=== PATIENT | female | born 1990 | race African-American/Black ===

== ENCOUNTER 2019-01-27 08:06 | Observation (INO) | payer OTHER ==
--- OUTSIDE RECORDS SUMMARY | 2019-01-27 08:08 | XMS REPORT ---
:1990 [facility] Organization [facility] Address [address] [place] [address] Dr. Jacobo [address] [place] [id number] Care Team Providers Name Role Phone Unavailable Unavailable Unavailable Problems This patient has no known problems. Allergies, Adverse Reactions, Alerts This patient has no known allergies or adverse reactions. Medications This patient has no known medications.
[2019-01-27 09:26] LABS: Absolute Lymphocytes (CBC) 2.4 K/uL (0.7-4.9); Absolute Monocytes 0.7 K/uL (0.1-1.3); Absolute Neutrophil 2.9 K/uL (1.8-8.0); Basophils % 0.4 % (0-1.3); Eosinophils % 1.3 % (0-4.4); Hematocrit 40.6 % (36.0-45.0); Lymphocytes % 38.8 % (15.3-44.8); MPV 10.2 fL (7.6-11.3); Monocytes % 11.6 % (3.3-12.3); RBC Red Blood Cell Count 4.38 M/uL (3.86-4.86)
[2019-01-27] MEDS ORDERED: NA CHLORIDE 0.9% 1,000 ML ONE (09:34)
[2019-01-27 09:51] LABS: BUN Blood Urea Nitrogen 13 mg/dL (7-18); Bicarbonate 28 mmol/L (21-32); Glucose Level 88 mg/dL (74-106); Potassium 4.3 mmol/L (3.5-5.1); Sodium Level 146 mmol/L (136-145)
--- NOTE | 2019-01-27 11:25 | RAD REPORT ---
EXAM DESCRIPTION: RAD - Chest Single View - 01/27/2019 10:53 am CLINICAL HISTORY: Cough COMPARISON: January 2013 TECHNIQUE: AP portable chest image was obtained 1050 hours . FINDINGS: Lungs are clear. Heart and vasculature are normal. No measurable pleural effusion and no p neumothorax. No acute bony abnormality seen. No acute aortic findings suspected. IMPRESSION: No acute cardiopulmonary process.
--- NOTE | 2019-01-27 16:12 | EDPHYS ---
Physician Documentation [facility] Name: Ladi Gates Age: 28 yrs Sex: Female : 1990 Arrival Date: 01/27/2019 Time: 08:10 Bed 19 Private MD: Esme White H ED Physician Alexy Vela HPI: 01/27 08:20 This 28 yrs old Black Female presents to ER via Wheelchair with complaints of Fever, cp Decreased Appetite. 08:20 The patient reports fever, not measured (subjective). cp 08:20 Onset: The symptoms/episode began/occurred yesterday. Associated signs and symptoms: cp Pertinent positives: cough, decreased appetite, Pertinent negatives: diarrhea, skin rash, vomiting. 08:20 Severity of symptoms: in the emergency department the symptoms are unchanged despite cp home interventions. Patient non-verbal due to cerebral palsy. Mother reports subjective weight loss, decreased appetite and cough for 2 weeks. Historical: - Allergies: 08:34 PENICILLINS; em 08:34 Azithromycin; em - Home Meds: 08:34 Trazodone Oral [Active]; Atenolol Oral [Active]; Risperdal 2 mg Oral tab 1 tab once em daily [Active]; phenobarbital 30 mg Oral tab [Active]; clorazepate dipotassium 3.75 mg oral tab [Active]; lisinopril 20 mg Oral tab [Active]; levetiracetam 100 mg/mL oral soln 7.5 mL [Active]; valproic acid 250 mg oral cap [Active]; - PMHx: 08:34 Cerebral Palsy; em - PSHx: 08:34 None; em - Immunization history:: Adult Immunizations up to date. - Social history:: Smoking status: Patient/guardian denies using tobacco. - Ebola Screening: : Patient negative for fever greater than or equal to 101.5 degrees Fahrenheit, and additional compatible Ebola Virus Disease symptoms Patient denies exposure to infectious person Patient denies travel to an Ebola-affected area in the 21 days before illness onset No symptoms or risks identified at this time. ROS: 08:30 Constitutional: Positive for poor PO intake, Negative for fever. cp 08:30 Eyes: Negative for injury, pain, redness, and discharge. cp 08:30 ENT: Negative for drainage from ear(s), ear pain, sore throat, difficulty swallowing, difficulty handling secretions. 08:30 Respiratory: Positive for cough, Negative for wheezing. 08:30 Abdomen/GI: Negative for vomiting, diarrhea, constipation. 08:30 Skin: Negative for rash. 08:30 All other systems are negative. Exam: 08:35 Constitutional: The patient appears in no acute distress, alert, awake, cp non-diaphoretic, non-toxic, well developed, frail. 08:35 Head/Face: Normocephalic, atraumatic. cp 08:35 Eyes: Periorbital structures: appear normal, Pupils: equal, round, and reactive to light and accomodation, Conjunctiva: normal, no exudate, no injection, Sclera: no appreciated abnormality, Lids and lashes: appear normal, bilaterally. 08:35 ENT: External ear(s): are unremarkable, Ear canal(s): are normal, clear, TM's: bulging, is not appreciated, bilaterally, dullness, bilaterally, erythema, is not appreciated, bilaterally, Nose: is normal, Mouth: Lips: dry, Oral mucosa: dry, Posterior pharynx: is normal, airway is patent, no erythema, no exudate. 08:35 Neck: ROM/movement: is normal, is supple, no meningismus, no nuchal rigidity. 08:35 Chest/axilla: Inspection: normal, Palpation: is normal, no crepitus, no tenderness. 08:35 Cardiovascular: Rate: normal, Rhythm: regular. 08:35 Respiratory: the patient does not display signs of respiratory distress, Respirations: normal, no use of accessory muscles, no retractions, no splinting, no tachypnea, labored breathing, is not present, Breath sounds: decreased breath sounds, are not appreciated, stridor, is not appreciated, wheezing: is not appreciated. 08:35 Abdomen/GI: Inspection: abdomen appears normal, Bowel sounds: active, all quadrants, Palpation: soft, in all quadrants, mild abdominal tenderness, in the right lower quadrant and left lower quadrant. 08:35 Skin: cellulitis, is not appreciated, no rash present. Vital Signs: 08:34 BP 117 / 78; Pulse 88; Resp 16; Temp 97.5(A); Pulse Ox 100% on R/A; Weight 31.3 kg (R); em 10:00 BP 118 / 81; Pulse 85; Resp 18; Pulse Ox 100% on R/A; em 11:00 BP 108 / 86; Pulse 77; Resp 18; Pulse Ox 99% on R/A; em 12:06 BP 118 / 82; Pulse 81; Resp 18; Pulse Ox 99% on R/A; em 14:51 BP 130 / 86; Pulse 85; Resp 16; Pulse Ox 100% on R/A; ms 19:47 BP 138 / 95; Pulse 83; Resp 16; Pulse Ox 99% ; ea 20:45 BP 130 / 90; Pulse 80; Resp 18; Pulse Ox 99% ; ea MDM: 08:18 Patient medically screened. 15:30 Data reviewed: vital signs, nurses notes, lab test result(s), radiologic studies, plain cp films. 15:30 Test interpretation: by ED physician or midlevel provider: plain radiologic studies. cp Response to treatment: the patient's symptoms have mildly improved after treatment, No urine output observed after 3 fluid boluses at this point and multiple urinary cath attempts to obtain urine. Will admit for continued IV fluids and monitoring. 15:34 Physician consultation: Chris NOBLE was called at 15:30, was contacted at 15:30, cp regarding admission, to the medical/surgical unit. patient's condition, and will see patient in ED, shortly. 01/27 08:26 Order name: Urine Microscopic Only cp 01/27 08:26 Order name: CBC with Diff; Complete Time: 10:23 cp 01/27 11:20 Interpretation: Normal except: MCV 92.6. cp 01/27 08:26 Order name: Strep; Complete Time: 10:23 cp 01/27 08:26 Order name: Influenza Screen (a \T\ B); Complete Time: 10:23 cp 01/27 11:20 Interpretation: Reviewed. cp 01/27 08:26 Order name: BMP; Complete Time: 10:23 cp 01/27 11:19 Interpretation: Normal except: NA 146; CL 109. cp 01/27 09:19 Order name: Throat Culture EDMS 01/27 17:23 Order name: Basic Metabolic Panel EDMS 01/27 17:23 Order name: Basic Metabolic Panel EDMS 01/27 17:23 Order name: CBC with Automated Diff EDMS 01/27 17:23 Order name: CBC with Automated Diff EDMS 01/27 17:30 Order name: Creatine Phosphokinase EDFL 01/27 18:19 Order name: Blood Culture Adult (2) cp 01/27 18:19 Order name: Procalcitonin 01/27 19:01 Order name: Procalcitonin [facility] 01/27 10:23 Order name: XRAY Chest (1 view); Complete Time: 11:29 01/27 11:29 Interpretation: Report review. 01/27 16:13 Order name: CT Abd/Pelvis - W/Contrast; Complete Time: 18:11 01/27 17:23 Order name: Regular EDFL 01/27 20:15 Order name: Urine Dipstick--Ancillary (enter results) mt 01/27 20:15 Order name: Urine --Ancillary (enter results) tn Administered Medications: 10:06 Drug: NS 0.9% (20 ml/kg) 20 ml/kg Route: IV; Rate: 1 bolus; Site: left antecubital; em 13:00 Follow up: IV Status: Completed infusion; IV Intake: 600ml em 13:42 Drug: NS 0.9% (20 ml/kg) 20 ml/kg Route: IV; Rate: 1 bolus; Site: right forearm; em 14:24 Follow up: IV Status: Completed infusion; IV Intake: 600ml em 14:30 Drug: NS 0.9% (20 ml/kg) 20 ml/kg Route: IV; Rate: 1 bolus; Site: right forearm; em 15:30 Follow up: IV Status: Completed infusion; IV Intake: 600ml em 16:12 Not Given (Physician Discretion): NS 0.9% 500 ml IV at bolus once cp 19:05 Drug: Rocephin (cefTRIAXone) 25 mg/kg Route: IVPB; Site: right antecubital; ea 20:00 Follow up: Response: No adverse reaction; IV Status: Completed infusion ea 20:56 Drug: metroNIDAZOLE 7.5 mg/kg {Note: right upper midline.} Volume: 50 ml; Route: IVPB; ea Infused Over: 30 mins; Site: Other; 21:00 Follow up: Response: No adverse reaction; IV Status: Infusion continued upon admission ea Disposition: 01/27/19 16:11 Hospitalization ordered by Melvin Rodriguez for Observation. Preliminary diagnosis are Dehydration, colitis. - Bed requested for Telemetry/MedSurg (observation). - Status is Observation. ea - Condition is Stable. - Problem is new. - Symptoms are unchanged. UTI on Admission? No Addendum: 01/30/2019 07:12 Co-signature as Attending Physician, Alexy Vela MD I agree with the assessment and c villatoro plan of care. Signatures: Dispatcher [employer] Alexy Cai MD MD cha Munoz, Dima, BIOLOGY MANAGER BIOLOGY MANAGER em Alexy Medeiros, PA PA cp Earlene Valadez, RN RN Kelly Khanna Corrections: (The following items were deleted from the chart) 01/27 10:24 08:26 King ordered. cp cp 18:30 16:11 [facility]. Preliminary eb diagnosis is Dehydration. Bed requested for Telemetry/MedSurg (observation). Status is Observation. Condition is Stable. Problem is new. Symptoms are unchanged. UTI on Admission? No. cp 18:39 18:30 01/27/2019 16:11 Hospitalization Ordered by Melvin Jennifer for Observation. cp Preliminary diagnosis is Dehydration. Bed requested for Telemetry/MedSurg (observation). Status is Observation. Condition is Stable. Problem is new. Symptoms are unchanged. UTI on Admission? No. eb 21:12 18:39 01/27/2019 16:11 Hospitalization Ordered by Redmond Jennifer for Observation. ea Preliminary diagnosis is Dehydration; colitis. Bed requested for Telemetry/MedSurg (observation). Status is Observation. Condition is Stable. Problem is new. Symptoms are unchanged. UTI on Admission? No. cp
--- NOTE | 2019-01-27 16:12 | ER ---
Nurse's Notes [facility] Name: Ladi Gates Age: 28 yrs Sex: Female : 1990 Arrival Date: 01/27/2019 Time: 08:10 Bed 19 Private MD: Esme White H Diagnosis: Dehydration;colitis Presentation: 01/27 08:26 Presenting complaint: Mother states: has not been eating or drinking, has had a cough em for several weeks and has been feeling warm, she has been losing weight, pt unable to communicate, pt awake and alert, Hx of cerebral palsy. Transition of care: patient was not received from another setting of care. Onset of symptoms was January 2019. Risk Assessment: Do you want to hurt yourself or someone else? Patient reports no desire to harm self or others. Initial Sepsis Screen: Does the patient meet any 2 criteria? No. Patient's initial sepsis screen is negative. Does the patient have a suspected source of infection? Yes: Productive cough/pneumonia. Care prior to arrival: None. 08:26 Method Of Arrival: Wheelchair em 08:44 Acuity: ELINA 3 sv Triage Assessment: 08:34 General: Appears in no apparent distress. comfortable, slender, Behavior is calm. Pain: em Unable to use pain scale. FLACC scale score is 0 out of 10. Historical: - Allergies: 08:34 PENICILLINS; em 08:34 Azithromycin; em - Home Meds: 08:34 Trazodone Oral [Active]; Atenolol Oral [Active]; Risperdal 2 mg Oral tab 1 tab once em daily [Active]; phenobarbital 30 mg Oral tab [Active]; clorazepate dipotassium 3.75 mg oral tab [Active]; lisinopril 20 mg Oral tab [Active]; levetiracetam 100 mg/mL oral soln 7.5 mL [Active]; valproic acid 250 mg oral cap [Active]; - PMHx: 08:34 Cerebral Palsy; em - PSHx: 08:34 None; em - Immunization history:: Adult Immunizations up to date. - Social history:: Smoking status: Patient/guardian denies using tobacco. - Ebola Screening: : Patient negative for fever greater than or equal to 101.5 degrees Fahrenheit, and additional compatible Ebola Virus Disease symptoms Patient denies exposure to infectious person Patient denies travel to an Ebola-affected area in the 21 days before illness onset No symptoms or risks identified at this time. Screenin:34 Abuse screen: Denies threats or abuse. Nutritional screening: No deficits noted. em Tuberculosis screening: No symptoms or risk factors identified. Fall Risk No fall in past 12 months (0 pts). Ambulatory Aid- None/Bed Rest/Nurse Assist (0 pts). Gait- Impaired (20 pts.). Mental Status- Overestimates/Forgets Limitations (15 pts.). Total Lino Fall Scale indicates Low Risk Score (25-44 pts). Side Rails Up X 2 Family Present and informed to notify staff if they need to leave bedside. Assessment: 08:34 General: Appears in no apparent distress. comfortable, slender, Behavior is calm. Pain: em Unable to use pain scale. FLACC scale score is 0 out of 10. Neuro: Level of Consciousness is awake, alert. Cardiovascular: Capillary refill < 3 seconds Patient's skin is warm and dry. Respiratory: Airway is patent Breath sounds are clear bilaterally. GI: Abdomen is flat. Derm: Skin is intact, is healthy with good turgor, Skin is pink, warm \T\ dry. Musculoskeletal: Swelling absent. 08:34 Neuro: Level of Consciousness is awake, alert, Non-verbal at this time, unable to aa5 follow commands. . Cardiovascular: Heart tones S1 S2 present Rhythm is regular. GI: Bowel sounds present X 4 quads. Abd is soft X 4 quads. : brief noted. Musculoskeletal: pt is bed bound, with ria arm contractions noted. 08:34 Reassessment: I agree with assessment completed by Dima Ovalles LVN. Pt's caregiver at aa5 bedside. . 10:00 Reassessment: Patient appears in no apparent distress at this time. Patient and/or em family updated on plan of care and expected duration. Pain level reassessed. pending UA specimen, family at bedside. 11:37 Reassessment: Patient appears in no apparent distress at this time. Patient and/or em family updated on plan of care and expected duration. Pain level reassessed. pending UA collection. 12:06 Reassessment: Patient appears in no apparent distress at this time. small amount of em urine in pedi bag, provider notified, pt awake and alert, family at bedside. 13:00 Reassessment: was re-cathed, obtained no urine, provider notified, new medication em orders received. 15:04 Reassessment: popsicle given, pending UA, pedi bag is empty at this time, pt awake and em alert, respirations even and unlabored, skin pink warm and dry. 16:10 Reassessment: AIDE Perez at bedside discussing POC. em 17:15 Reassessment: pt wheeled to CT via stretcher. em 17:45 Reassessment: Patient appears in no apparent distress at this time. Patient and/or em family updated on plan of care and expected duration. Pain level reassessed. returned from CT, awake and alert, respirations even and unlabored, skin pink warm and dry, pending room assignment. 19:00 General: Appears in no apparent distress. Behavior is calm. General: Mother reports ea child is bed bound and requires total assist. Pain: Denies pain. Neuro: Level of Consciousness is awake, alert. Cardiovascular: Patient's skin is warm and dry. Respiratory: Airway is patent. GI: Abdomen is flat, non-distended. Derm: Skin is pink, warm \T\ dry. Musculoskeletal: Circulation, motion, and sensation intact. 20:40 Reassessment: Patient and/or family updated on plan of care and expected duration. Pain ea level reassessed. Pt alert, respirations even and unlabored. Chest expansions even and symmetrical. No s/s of pain or discomfort noted at this time. 21:07 Reassessment: Patient and/or family updated on plan of care and expected duration. Pain ea level reassessed. Pt admitted to second floor via stretcher per tech, accompanied by mother. Pt alert, respirations even and unlabored. Chest expansions even and symmetrical. Vital Signs: 08:34 BP 117 / 78; Pulse 88; Resp 16; Temp 97.5(A); Pulse Ox 100% on R/A; Weight 31.3 kg (R); em 10:00 BP 118 / 81; Pulse 85; Resp 18; Pulse Ox 100% on R/A; em 11:00 BP 108 / 86; Pulse 77; Resp 18; Pulse Ox 99% on R/A; em 12:06 BP 118 / 82; Pulse 81; Resp 18; Pulse Ox 99% on R/A; em 14:51 BP 130 / 86; Pulse 85; Resp 16; Pulse Ox 100% on R/A; ms 19:47 BP 138 / 95; Pulse 83; Resp 16; Pulse Ox 99% ; ea 20:45 BP 130 / 90; Pulse 80; Resp 18; Pulse Ox 99% ; ea ED Course: 08:10 Patient arrived in ED. mr 08:10 Esme White DO is Private Physician. mr 08:15 Alxey Medeiros PA is PHCP. cp 08:15 Alexy Vela MD is Attending Physician. cp 08:26 Dima Ovalles LVN is Primary Nurse. em 08:34 Arm band placed on. em 08:34 Patient has correct armband on for positive identification. Placed in gown. Bed in low em position. Call light in reach. Side rails up X2. Adult w/ patient. Pulse ox on. NIBP on. 08:44 Triage completed. sv 08:49 Flu and/or RSV swab sent to lab. Strep swab sent to lab. Missed attempt(s): 22 gauge in ms right forearm. Bleeding controlled, band aid applied, catheter tip intact. 10:53 XRAY Chest (1 view) In Process Unspecified. EDMS 11:04 Straight cath inserted, using sterile technique, 16 Fr. no urine obtained. em 13:00 Straight cath inserted, using sterile technique, 16 Fr. no urine obtained. ms 15:10 Bladder scan completed. 0 mL. em 16:11 Melvin Rodriguez DO is Hospitalizing Provider. cp 16:30 Oral contrast reported to be complete. jg6 17:[address] via stretcher. vm2 17:32 CT Abd/Pelvis - W/Contrast In Process Unspecified. EDMS 17:32 CT completed. Patient tolerated procedure well. Patient moved back from CT. em2 20:45 Lab(s) recollected, by me, sent to lab. First set of blood cultures drawn. Inserted 18 fc gauge 8 cm midline to right upper arm brachial vein on first attempt. Line with good blood return and flushes well. 20:50 IV discontinued, intact, bleeding controlled, No redness/swelling at site. Pressure ea dressing applied, 24 G discontinued. 21:11 No provider procedures requiring assistance completed. ea Administered Medications: 10:06 Drug: NS 0.9% (20 ml/kg) 20 ml/kg Route: IV; Rate: 1 bolus; Site: left antecubital; em 13:00 Follow up: IV Status: Completed infusion; IV Intake: 600ml em 13:42 Drug: NS 0.9% (20 ml/kg) 20 ml/kg Route: IV; Rate: 1 bolus; Site: right forearm; em 14:24 Follow up: IV Status: Completed infusion; IV Intake: 600ml em 14:30 Drug: NS 0.9% (20 ml/kg) 20 ml/kg Route: IV; Rate: 1 bolus; Site: right forearm; em 15:30 Follow up: IV Status: Completed infusion; IV Intake: 600ml em 16:12 Not Given (Physician Discretion): NS 0.9% 500 ml IV at bolus once cp 19:05 Drug: Rocephin (cefTRIAXone) 25 mg/kg Route: IVPB; Site: right antecubital; ea 20:00 Follow up: Response: No adverse reaction; IV Status: Completed infusion ea 20:56 Drug: metroNIDAZOLE 7.5 mg/kg {Note: right upper midline.} Volume: 50 ml; Route: IVPB; ea Infused Over: 30 mins; Site: Other; 21:00 Follow up: Response: No adverse reaction; IV Status: Infusion continued upon admission ea Intake: 13:00 IV: 600ml; Total: 600ml. em 14:24 IV: 600ml; Total: 1200ml. em 15:30 IV: 600ml; Total: 1800ml. em Outcome: 16:11 Decision to Hospitalize by Provider. cp 19:00 Instructed on the need for admit. ea 21:10 Admitted to Med/surg accompanied by tech, room 229, with chart, Report called to tray Jacques RN 21:10 Condition: stable 21:12 Patient left the ED. ea Signatures: Dispatcher [employer] EDMS Shari Ferrari, RN DANNY Lyman, Katharina mr Zan, Juliann, RN Dima Shell, ECONOMIC ANALYST ECONOMIC ANALYST em Valderrama, Inessa ms MerrittCarline, RN RN aa5 Rick Pryor em2 Alexy Medeiros PA PA Kasia Nguyen Earlene Betancur RN RN ea Garcia, Jessica j6 Corrections: (The following items were deleted from the chart) 18:01 17:45 Reassessment: Patient appears in no apparent distress at this time. returned from em CT em
[2019-01-27] MEDS ORDERED: NA CHLORIDE 0.9% 500 ML ONE (16:38)
[2019-01-27] MEDS ORDERED: ONDANSETRON 4 MG/2 ML VIAL IV PRN (17:19)
[2019-01-27] MEDS ORDERED: ACETAMINOPHEN 500 MG TAB PO PRN (17:19)
--- NOTE | 2019-01-27 17:28 | P.HP ---
Certification for Inpatient Patient admitted to: Observation With expected LOS: <2 Midnights Patient will require the following post-hospital care: None Practitioner: I am a practitioner with admitting privileges, knowledge of patient current condition, hospital course, and medical plan of care. Services: Services provided to patient in accordance with Admission requirements found in Title 42 Section 412.3 of the Code of Federal Regulations Patient History Date of Service: 01/27/19 Primary Care Provider: Cindy Reason for admission: Dehydration History of Present Illness: Patient was brought to ED by family for a few day history of decreased appetite , subjective fevers, decreased fluid intake, and fatigue. Patient is 28 y/o with history of cerebral palsy. Non ambulatory, non verbal. Patient alert and awake upon examination. Will talk to the best of her ability. ED gave a total of 2 liters NS and had bladder scanned and straight cathed her without urine output. Sodium 146 but without renal failure. Patient clinically dehydrated and could use observation with continued hydration via intravenous line Allergies azithromycin [From Zithromax] Adverse Reaction (Unknown, Verified 01/31/13 09:14 ) UNKNOWN Amoxicillin Allergy (Uncoded 04/17/15 19:58) Unknown Home medications list reviewed: Yes Home Medications: Clorazepate Dipotassium [Tranxene T-Tab] 7.5 mg PO BID 01/31/13 Levetiracetam 1 tsp PO BID 01/31/13 Valproic Acid Syrup [Depakene Syrup*] 7.5 ml PO BID 01/31/13 Levetiracetam 7.5 ml PO BID #1 02/03/13 Valproic Acid Syrup [Depakene Syrup*] 10 ml PO BID #1 02/03/13 - Past Medical/Surgical History Has patient received pneumonia vaccine in the past: No Diabetic: No - Social History Smoking therapy provided: No Alcohol use: No CD- Drugs: No Caffeine use: No Review of Systems is unable to be obtained (Non verbal with cerebral palsy) Physical Examination - Vital Signs Temperature: 97.5 F Blood Pressure: 130/86 Pulse: 85 Respirations: 16 Pulse Ox (%): 100 - Physical Exam General: Alert, In no apparent distress HEENT: Normocephalic, PERRLA, Mucous membr. moist/pink Neck: Supple, JVD not distended, No Thyromegaly Respiratory: Clear to auscultation bilaterally, Normal air movement Cardiovascular: No edema, Normal pulses, Regular rate/rhythm, Normal S1 S2, No gallops, No rubs, No murmurs Capillary refill: <2 Seconds Gastrointestinal: Normal bowel sounds, Soft and benign, Non-distended, No ascites, No tenderness, No masses, No rebound, No guarding Musculoskeletal: No clubbing, No swelling, No contractures, No erythema, No tenderness, No warmth Integumentary: No rashes, No breakdown, No significant lesion, No tenderness/ swelling, No erythema, No warmth, No cyanosis Neurological: Other (History of Cerebral palsy), Abnormal speech, Abnormal tone , Abnormal reflexes, Abnormal affect Lymphatics: No axilla or inguinal lymphadenopathy - Studies Laboratory Data (last 24 hrs) 01/27/19 09:00: Sodium 146 H, Potassium 4.3, BUN 13, Creatinine 0.74, Glucose 88 01/27/19 09:00: WBC 6.1, Hgb 13.2, Hct 40.6, Plt Count 200 Microbiology Data (last 24 hrs): 01/27/19 08:47 Nasopharnyx Influenza Type A Antigen Screen - Final 01/27/19 08:47 Nasopharnyx Influenza Type B Antigen Screen - Final 01/27/19 08:47 Throat Group A Streptococcus Rapid Screen - Final Assessment and Plan - Problems (Diagnosis) (1) Dehydration Current Visit: Yes Status: Acute Plan: continue hydration. Monitor I&O's. Repeat labs in AM Discharge Plan: Home Plan to discharge in: 24 Hours - Advance Directives Does patient have a Living Will: No Does patient have a Durable POA for Healthcare: No
--- NOTE | 2019-01-27 17:57 | RAD REPORT ---
EXAM DESCRIPTION: CT - Abdomen Pelvis W Contrast - 01/27/2019 5:32 pm CLINICAL HISTORY: Abdominal pain. COMPARISON: None. TECHNIQUE: Computed axial tomography of the abdomen and pelvis was obtained. 100 cc Isovue-300 is ad ministered intravenously. Oral contrast was given. All CT scans are performed using dose optimization technique as appropriate and may include automated exposure control or mA/KV adjustment according to patient size. FINDINGS: The liver, spleen, pancreas, adrenals and kidneys appear unremarkable. The appendix is normal caliber. There is no evidence of diverticulitis The wall of the right colon appears mildly thickened IMPRESSION: Apparent thickening of the wall of the right colon may be secondary to incomplete diste ntion or mild colitis
[2019-01-27] MEDS ORDERED: METRONIDAZOLE 250mg IVPB 250 MG/50 ML BAG IV ONE (19:00)
[2019-01-27] MEDS ORDERED: NA CHLORIDE 0.9% IV ONE (19:00)
[2019-01-27] MEDS ORDERED: CEFTRIAXONE IV ONE (19:00)
[2019-01-27 21:24] LABS: Urine Blood 2+ (NEG); Urine Glucose NEGATIVE (NEG); Urine Protein NEGATIVE (NEG)
[2019-01-27 21:26] LABS: Urine Bacteria <20 /HPF (<20); Urine Culture Reflex Order NOT NEEDED
[2019-01-27] MEDS: NA CHLORIDE 0.9% 1,000 ML IV SCH (22:46)
[2019-01-27] MEDS: TRAZODONE 50 MG TABLET PO SCH (23:12)
[2019-01-28 00:11] VITALS: BMI 11.8
[2019-01-28] MEDS ORDERED: RISPERIDONE 1 MG TABLET PO SCH (02:11)
[2019-01-28] MEDS ORDERED: PHENOBARBITAL 32.4 MG TABLET PO SCH (02:13)
[2019-01-28] MEDS ORDERED: PHENOBARBITAL 32.4 MG TABLET PO PRN (02:31)
[2019-01-28] MEDS: RISPERIDONE 1 MG TABLET PO SCH ×2 (02:52→21:00)
[2019-01-28] MEDS: NA CHLORIDE 0.9% 1,000 ML IV SCH ×5 (03:26→21:56)
[2019-01-28 06:28] LABS: BUN Blood Urea Nitrogen 6 mg/dL (7-18); Bicarbonate 26 mmol/L (21-32); Glucose Level 101 mg/dL (74-106); Potassium 3.6 mmol/L (3.5-5.1); Sodium Level 143 mmol/L (136-145)
[2019-01-28 06:33] LABS: Absolute Lymphocytes (CBC) 2.1 K/uL (0.7-4.9); Absolute Neutrophil 3.6 K/uL (1.8-8.0); Basophils % 0.3 % (0-1.3); Eosinophils % 0.7 % (0-4.4); Hematocrit 34.2 % (36.0-45.0); Lymphocytes % 31.4 % (15.3-44.8); MPV 9.7 fL (7.6-11.3); Monocytes % 15.1 % (3.3-12.3); RBC Red Blood Cell Count 3.69 M/uL (3.86-4.86)
[2019-01-28] MEDS ORDERED: INFLUENZA VACCINE (for 3y+) 0.5 ML DOSE IMVAC ONE (08:00)
[2019-01-28 08:01] LABS: Blood Morphology Comment NOT SEEN (NOT SEEN); Platelet Estimate ADEQ
[2019-01-28 17:38] VITALS: O2SAT 96
--- NOTE | 2019-01-28 18:32 | PN ---
Date of Progress Note: 01/28/2019 History: The patient seen and examined. Chart reviewed and case discussed with RN. The patient has cerebral palsy, unable to communicate. Requires total care. Medications: List reviewed. Physical Examination: Vital Signs: Temperature 98.6, heart rate 87, blood pressure 115/71, respirations 14, O2 98% on room air. General: Awake, alert, unable to communicate. Does not appear in any acute distress, frail female. BMI 13. CV: S1, S2. Regular rate and rhythm. Peripheral pulses present. Respiratory: Diminished breath sounds at the bases, moving air well otherwise. Gastrointestinal: Abdomen is soft, nontender, nondistended. Positive bowel sounds. Extremities: No clubbing, cyanosis, or edema. Neuro: Unable to properly assess cranial nerves. The patient has contractures of the upper extremit y. Does not mobilize the lower extremities. The patient does make sounds, however, they do not seem to be meaningful. Does track. Laboratory Data: Sodium 143, potassium 3.6, chloride 114, CO2 26, BUN 6, creatinine 0.96, glucose 10 1, calcium. WBC 6.8, H and H 11.2 and 34.2, platelets 176, neutrophils 52%. Influenza screen negati ve. Group A strep screen also negative. Throat culture shows normal upper respiratory bre. Blood cultures pending. Assessment And Plan: A 28-year-old female with: 1.Acute dehydration. We will continue on IV fluids. The patient does not have access to free water . The patient is dependent and on total care. 2.Cerebral palsy. The patient at her baseline. 3.Failure to thrive. BMI 13.5. 4.Hypernatremia, corrected. Plan: We will continue supportive treatment for now. Encourage p.o. intake. Resume home medication s as appropriate. Follow up on cultures. Likely discharge in a.m. /MODL Voice ID: [id number] Report ID: [id number]
[2019-01-28] MEDS: CLORAZEPATE DIPOTASSIUM 7.5 MG PO SCH (21:00)
[2019-01-28] MEDS ORDERED: ATENOLOL 50 MG TAB PO SCH (21:00)
[2019-01-28] MEDS: levETIRAcetam 500 MG/5 ML OSYR PO SCH (21:00)
[2019-01-28] MEDS ORDERED: HOME MED 1 EA UNK (Risperidone [Risperdal] 2 MG) PO SCH (21:00)
[2019-01-28] MEDS: TRAZODONE 50 MG TABLET PO SCH (21:00)
[2019-01-28] MEDS ORDERED: TRAZODONE 50 MG TABLET PO SCH (21:00)
[2019-01-28] MEDS ORDERED: PHENOBARBITAL 30 MG PO SCH (21:00)
[2019-01-29] MEDS: NA CHLORIDE 0.9% 1,000 ML IV SCH ×2 (05:50→10:00)
[2019-01-29 07:45] LABS: Absolute Lymphocytes (CBC) 1.6 K/uL (0.7-4.9); Absolute Monocytes 0.8 K/uL (0.1-1.3); Absolute Neutrophil 3.2 K/uL (1.8-8.0); Basophils % 0.5 % (0-1.3); Eosinophils % 1.2 % (0-4.4); Hematocrit 31.1 % (36.0-45.0); Lymphocytes % 27.3 % (15.3-44.8); MPV 9.5 fL (7.6-11.3); Monocytes % 14.2 % (3.3-12.3); RBC Red Blood Cell Count 3.39 M/uL (3.86-4.86)
[2019-01-29 08:13] LABS: BUN Blood Urea Nitrogen 1 mg/dL (7-18); Bicarbonate 28 mmol/L (21-32); Glucose Level 96 mg/dL (74-106); Magnesium 1.7 mg/dL (1.8-2.4); Phosphorus 2.1 mg/dL (2.5-4.9); Potassium 3.3 mmol/L (3.5-5.1); Sodium Level 147 mmol/L (136-145)
[2019-01-29 08:53] VITALS: TEMP 98.2
[2019-01-29] MEDS: CLORAZEPATE DIPOTASSIUM 7.5 MG PO SCH (09:00)
[2019-01-29] MEDS: levETIRAcetam 500 MG/5 ML OSYR PO SCH (09:00)
[2019-01-29] MEDS ORDERED: MAGNESIUM SULFATE 1 gm IVPB 1 GM/100 ML BAG IV ONE (09:29)
[2019-01-29] MEDS ORDERED: POTASSIUM PHOS IN 0.9 % NACL 15 MMOL/250 ML BAG IV ONE (10:00)
--- NOTE | 2019-01-29 12:26 | EKG ---
Test Date: 2019-01-28 Test Time: 22:26:53 Certified Juvenile Probation Officer: RT MEASUREMENT RESULTS: Intervals: Rate: 83 VT: 98 QRSD: 72 QT: 362 QTc: 425 [place]: P: 64 VT: 98 QRS: 74 T: 70 INTERPRETIVE STATEMENTS: Sinus rhythm with short VT Nonspecific T wave abnormality Abnormal ECG No previous ECG available for comparison Electronically Signed On 01-29-19 12:24:18 CDT by Rosalino Alamo
[2019-01-29 12:33] VITALS: BP 118/62
[2019-01-29] MEDS ORDERED: ATENOLOL 50 MG TAB PO SCH (21:00)
--- NOTE | 2019-01-30 03:36 | DS ---
Date of Discharge: 01/29/2019 Consultants: None. Admitting Diagnoses: 1.Acute dehydration. 2.Cerebral palsy. 3.Functional quadriplegia. Discharge Diagnoses: 1.Acute dehydration. 2.Cerebral palsy. 3.Failure to thrive. BMI 13.5. 4.Hypernatremia. 5.Functional quadriplegia. 6.Hypomagnesemia. Hospital Course: The patient is a 28-year-old female with cerebral palsy who requires complete silvana tance with her activities of daily living, brought in due to dehydration and decreased appetite and f luid intake. The patient is nonambulatory, nonverbal at baseline. The patient did have some electro lyte abnormalities which were corrected. The patient's procalcitonin was negative. She did not appe ar septic. White count was normal. UA was negative as well. Cultures were obtained, which showed n o growth. Strep screen and flu screen were negative. The patient was rehydrated with IV fluids. Sh e felt better. She was able to regain her appetite and was eating well. CT scan of the abdomen and pelvis was done, which showed thickening of the wall of the right colon, may be secondary to incomple te distention or mild colitis; however, clinically, she did not have any abdominal pain. White count was normal. The patient was able to do well over the course of the hospital stay. She was back to her baseline in terms of her feeding and level of activity. The patient was then cleared for dischar and was sent home in a stable condition. Activity: As tolerated. Medications: As per medication reconciliation list. Diet: Regular diet. Followup: Follow up with primary care physician in 2-3 days. Return to ER for worsening condition. Physical Examination: General: Awake and alert, frail female, BMI 13. CV: S1, S2. Respiratory: Moving air well bilaterally. Abdomen: Soft, nontender, nondistended. Positive bowel sounds. Extremities: No clubbing, cyanosis, edema. Neuro: The patient has contractures, nonverbal. SA/MODL Voice ID: [id number] Report ID: [id number]
== END 2019-01-29 15:24 | disposition home or self-care (01) ==
LOC: ER 08:06 → ERHOLD 17:18 → 2ND 20:50
PROVIDERS: ADMIT Family Medicine; ATTEND Family Medicine
DX: E86.0 Dehydration (principal); R62.7 Adult failure to thrive; Z68.1 Body mass index [BMI] 19.9 or less, adult; E87.0 Hyperosmolality and hypernatremia; E83.42 Hypomagnesemia; R53.2 Functional quadriplegia; G80.9 Cerebral palsy, unspecified; Z88.0 Allergy status to penicillin; Z23 Encounter for immunization
CPT/HCPCS: 96365; 96361; 93005; 87040; 87070; 85025 ×3; 80048 ×3; 36415 ×2; 83735; 82550; 81025; 84100; 87081; 84443; 84439; 82533; 84145; 87804 ×2; 74177; 71045; 51702; 96375; 99285; Q9967; Q2035; J3475; J7030 ×5; J0696; G0008; G0378 ×2; 81003; 81015

== ENCOUNTER 2020-02-23 05:52 | Emergency (ER) | payer MEDICARE, OTHER ==
--- OUTSIDE RECORDS SUMMARY | 2020-02-23 05:54 | XMS REPORT ---
:1990 Author Organization [facility] t Address [address] [place] [address] Care Team Providers Name Role Phone Unavailable Unavailable Unavailable Problems This patient has no known problems. Allergies, Adverse Reactions, Alerts This patient has no known allergies or adverse reactions. Medications This patient has no known medications.
--- OUTSIDE RECORDS SUMMARY | 2020-02-23 05:54 | XMS REPORT | Clinical Summary ---
:1990 Author Organization [facility] Address [address] [place] [id number] Care Team Providers Name Role Phone White Primary Care Provider Allergies Active Allergy Reactions Severity Noted Date Comments Amoxicillin Rash Medium 08/30/2013 Haloperidol Lactate Extra pyramidal 02/01/2014 Tongu e swelling effects Lamotrigine Rash 11/03/2013 Penicillins Shortness of Breath 12/14/2018 Sulfa (Sulfonamide Rash 02/21/2019 Antibiotics) Azithromycin Other - See comments 06/22/2012 Family allergy so mother does not want pt to have Medications Medication Sig Dispensed Refills Start Date End Date Status acetaminophen Take 650 mg by 20 Tab 0 01/20/2013 Active (ARTHRITIS PAIN mouth every 6 RELIEF, ACETAM,) 650 (six) hours as mg Tab needed for Pain or Headache and/or Pain. MULTIVITAMIN WITH Take by mouth. 0 Active MINERALS (FORMULA MULTIVIT & MINERAL ORAL) montelukast Take 5 mg by 0 Activ e (SINGULAIR) 5 mg mouth. chewable tablet docusate (COLACE) 100 Take 1 capsule by 21 capsule 0 9 Active mg capsuleIndications: mouth 3 (three) Anorexia, times daily. Constipation, unspecified constipation type, Mild dehydration, Hyperkalemia levETIRAcetam 100 Take 7.5 mL by 450 mL 5 08/10/2019 Active mg/mL oral mouth 2 (two) solutionIndications: times daily. Generalized convulsive epilepsy, Infantile cerebral palsy valproic acid 250 mg/5 Take 10 mL by 600 mL 5 08/10/2019 Active mL mouth 2 (two) solutionIndications: times daily. Generalized convulsive epilepsy, Infantile cerebral palsy clorazepate 7.5 mg Take 1 tablet by 60 tablet 5 08/10/2019 Active tabletIndications: mouth 2 (two) Generalized convulsive times daily. epilepsy traZODone 50 mg Take 1 tablet by 90 tablet 1 11/29/2019 Active tabletIndications: mouth at bedtime. Insomnia, unspecified type risperiDONE 2 mg Take 1 tablet by 90 tablet 1 11/29/2019 Active tabletIndications: mouth at bedtime. Insomnia, unspecified type Active Problems Problem Noted Date Urinary incontinence 06/06/2010 Overview: ICD10 Diagnosis Term Sinker Puller Utility Incontinence of feces 06/06/2010 Overview: ICD10 Diagnosis Term Sinker Puller Utility Vaginal Discharge/swelling 12/24/2009 Salivation excessive 09/04/2009 Loss of weight 04/24/2009 Hearing loss 05/22/2008 Overview: ICD10 Diagnosis Term Sinker Puller Utility Behavioral problems 04/17/2008 Overview: ICD10 Diagnosis Term Sinker Puller Utility Infantile cerebral palsy 07/23/2005 Overview: ICD10 Diagnosis Term Sinker Puller Utility Mental retardation 07/23/2005 Overview: ICD10 Diagnosis Term Sinker Puller Utility Microcephalus 07/23/2005 Generalized convulsive epilepsy Overview: ICD10 Diagnosis Term Sinker Puller Utility Resolved Problems Problem Noted Date Resolved Date Epilepsy complicating , childbirth, or the 09/07/20 08 12/24/2009 puerperium, unspecified as to episode of care or not applicable(649.40) Otitis media 09/07/2008 12/24/2009 Overview: ICD10 Diagnosis Term Sinker Puller Utility Allergic rhinitis 09/07/2008 12/24/2009 Overview: ICD10 Diagnosis Term Sinker Puller Utility Encounters Date Type Specialty Care Team Description 11/17/2019 Refill Neurology Joshua Hernandez MD Ref ill Request from Last 3 Months Immunizations Name Administration Dates Next Due Depo Provera 04/16/2010 Influenza Virus Vaccine 12/24/2009, 09/07/2008, 09/16/2004 Family History Medical History Relation Name Comments Diabetes Mother Relation Name Status Comments Mother Social History Tobacco Use Types Packs/Day Years Used Date Never Smoker Smokeless Tobacco: Never Used Tobacco Cessation: Counseling Given: No Alcohol Use Drinks/Week oz/Week Comments Never Alcohol Habits Answer Date Recorded How often do you have a drink containing alcohol? Never 08/10/2019 How many drinks containing alcohol do you have on a typical Not asked day when you are drinking? How often do you have six or more drinks on one occasion? No t asked Sex Assigned at Date Recorded Not on file Job Start Date Occupation Industry Not on file Not on file Not on file Travel History Travel Start Travel End No recent travel history available. Last Filed Vital Signs Vital Sign Reading Time Taken Comments Blood Pressure 129/73 11/29/2019 10:25 AM SOCK MENDER Pulse 91 11/29/2019 10:25 AM SOCK MENDER Temperature 36.6 C (97.8 F) 02/21/2019 7:09 PM CDT Respiratory Rate 18 11/29/2019 10:25 AM SOCK MENDER Oxygen Saturation 98% 02/22/2019 12:00 AM CDT Inhaled Oxygen Concentration - - Weight 28.1 kg (62 lb) 11/29/2019 10:25 AM SOCK MENDER Height 152.4 cm (5') 11/29/2019 10:25 AM SOCK MENDER Body Mass Index 12.11 11/29/2019 10:25 AM SOCK MENDER Plan of Treatment Date Type Specialty Care Team Description 02/09/2020 Office Visit Neurology Joshua Hernandez MD [address] [place], [place] [address]. [place], [place] [phone] Health Maintenance Due Date Last Done Comments VARICELLA VACCINES (1 of 2 - 1992 2-dose childhood series) DTaP,Tdap,and Td Vaccines (1 2002 - Tdap) PAP SMEAR 2012 INFLUENZA VACCINE (#1) 2019 12/24/2009, 09/07/2008, 09/16/2004 PNEUMOCOCCAL 0-64 YEARS Aged Out No longe r eligible based COMBINED SERIES on patient's age to complete this to pic Results Not on filefrom Last 3 Months Insurance Payer Benefit Plan / Subscriber ID Effective Phone Address T ype Group Dates TMHP MEDICAID OF xxxxxxxxx 2019-Pr [phone] Medic aid [place] [id number] [place] [address] [facility] [id number] 2019-Pre Medicar e Adv HEALTHCARE - HEALTHCARE sent HMO MANAGED DUAL COMPLETE MEDICARE HMO [facility] [id number] 2019-Pre P O BOX Beh avioral BEHAVIORAL BEHAVIORAL sent [id number] [place] [address] Advance Directives Type Date 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
--- OUTSIDE RECORDS SUMMARY | 2020-02-23 05:55 | XMS REPORT | Clinical Summary ---
:1990 Author Organization [facility] Address [address] [place] [address] Care Team Providers Name Role Phone White [...] Urinary incontinence 06/06/2010 Overview: ICD10 Diagnosis Term General Distillery Worker Utility Incontinence of feces 06/06/2010 Overview: ICD10 Diagnosis Term General Distillery Worker Utility Vaginal Discharge/swelling 12/24/2009 Salivation excessive 09/04/2009 Loss of weight 04/24/2009 Hearing loss 05/22/2008 Overview: ICD10 Diagnosis Term General Distillery Worker Utility Behavioral problems 04/17/2008 Overview: ICD10 Diagnosis Term General Distillery Worker Utility Infantile cerebral palsy 07/23/2005 Overview: ICD10 Diagnosis Term General Distillery Worker Utility Mental retardation 07/23/2005 Overview: ICD10 Diagnosis Term General Distillery Worker Utility Microcephalus 07/23/2005 Generalized convulsive epilepsy Overview: ICD10 Diagnosis Term General Distillery Worker Utility Resolved Problems Problem Noted Date Resolved Date Epilepsy complicating , childbirth, or the 09/07/20 08 12/24/2009 puerperium, unspecified as to episode of care or not applicable(649.40) Otitis media 09/07/2008 12/24/2009 Overview: ICD10 Diagnosis Term General Distillery Worker Utility Allergic rhinitis 09/07/2008 12/24/2009 Overview: ICD10 Diagnosis Term General Distillery Worker Utility Encounters Date Type Specialty Care Team [...] Comments Blood Pressure 129/73 11/29/2019 10:25 AM DIRECTOR LOSS PREVENTION Pulse 91 11/29/2019 10:25 AM DIRECTOR LOSS PREVENTION Temperature 36.6 C (97.8 F) 02/21/2019 7:09 PM CDT Respiratory Rate 18 11/29/2019 10:25 AM DIRECTOR LOSS PREVENTION Oxygen Saturation 98% 02/22/2019 12:00 AM CDT Inhaled Oxygen Concentration - - Weight 28.1 kg (62 lb) 11/29/2019 10:25 AM DIRECTOR LOSS PREVENTION Height 152.4 cm (5') 11/29/2019 10:25 AM DIRECTOR LOSS PREVENTION Body Mass Index 12.11 11/29/2019 10:25 AM DIRECTOR LOSS PREVENTION Plan of Treatment Date Type Specialty Care Team Description 02/09/2020 Office Visit Neurology Joshua Hernandez MD [address] [place], [place] [address]. 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
--- OUTSIDE RECORDS SUMMARY | 2020-02-23 05:55 | XMS REPORT | Clinical Summary ---
:1990 Author Organization [facility] Address [address] [place] [address] Care Team Providers Name Role Phone White [...] Urinary incontinence 06/06/2010 Overview: ICD10 Diagnosis Term Endo Tech Utility Incontinence of feces 06/06/2010 Overview: ICD10 Diagnosis Term Endo Tech Utility Vaginal Discharge/swelling 12/24/2009 Salivation excessive 09/04/2009 Loss of weight 04/24/2009 Hearing loss 05/22/2008 Overview: ICD10 Diagnosis Term Endo Tech Utility Behavioral problems 04/17/2008 Overview: ICD10 Diagnosis Term Endo Tech Utility Infantile cerebral palsy 07/23/2005 Overview: ICD10 Diagnosis Term Endo Tech Utility Mental retardation 07/23/2005 Overview: ICD10 Diagnosis Term Endo Tech Utility Microcephalus 07/23/2005 Generalized convulsive epilepsy Overview: ICD10 Diagnosis Term Endo Tech Utility Resolved Problems Problem Noted Date Resolved Date Epilepsy complicating , childbirth, or the 09/07/20 08 12/24/2009 puerperium, unspecified as to episode of care or not applicable(649.40) Otitis media 09/07/2008 12/24/2009 Overview: ICD10 Diagnosis Term Endo Tech Utility Allergic rhinitis 09/07/2008 12/24/2009 Overview: ICD10 Diagnosis Term Endo Tech Utility Encounters Date Type Specialty Care Team [...] Comments Blood Pressure 129/73 11/29/2019 10:25 AM MEDICAL SECRETARY TEACHER Pulse 91 11/29/2019 10:25 AM MEDICAL SECRETARY TEACHER Temperature 36.6 C (97.8 F) 02/21/2019 7:09 PM CDT Respiratory Rate 18 11/29/2019 10:25 AM MEDICAL SECRETARY TEACHER Oxygen Saturation 98% 02/22/2019 12:00 AM CDT Inhaled Oxygen Concentration - - Weight 28.1 kg (62 lb) 11/29/2019 10:25 AM MEDICAL SECRETARY TEACHER Height 152.4 cm (5') 11/29/2019 10:25 AM MEDICAL SECRETARY TEACHER Body Mass Index 12.11 11/29/2019 10:25 AM MEDICAL SECRETARY TEACHER Plan of Treatment Date Type Specialty Care Team Description 02/09/2020 Office Visit Neurology Joshua Hernandez MD [address] [place], [place] [address]. 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
--- OUTSIDE RECORDS SUMMARY | 2020-02-23 05:56 | XMS REPORT | Summary of Care ---
:1990 Author Organization [facility] Address [address] [place] [address] Care Team Providers Name Role Phone White Primary Care Provider Reason for Visit Reason Comments Seizures Encounter Details Date Type Department Care Team Description 02/09/2020 Telemedicine Visit [facility] DavidJoshua convulsive epilepsy (Primary Dx); Neurology-Dilan Mancera MD Infantile cerebral palsy [address], [address] [facility] [place] [phone] Allergies Active Allergy Reactions Severity Noted Date Comments Amoxicillin Rash Medium 08/30/2013 Haloperidol Lactate Extra pyramidal 02/01/2014 Tongu e swelling effects Lamotrigine Rash 11/03/2013 Penicillins Shortness of Breath 12/14/2018 Sulfa (Sulfonamide Rash 02/21/2019 Antibiotics) Azithromycin Other - See comments 06/22/2012 Family allergy so mother does not want pt to have documented as of this encounter (statuses as of 02/13/2020) Medications Medication Sig Dispensed Refills Start Date [...] Take 1 capsule by 21 capsule 0 04/09/201 9 Active mg capsuleIndications: mouth 3 (three) [...] tabletIndications: mouth at bedtime. Insomnia, unspecified type documented as of this encounter (statuses as of 02/13/2020) Active Problems Problem Noted Date Urinary incontinence 06/06/2010 Overview: ICD10 Diagnosis Term Capital Project Engineer Utility Incontinence of feces 06/06/2010 Overview: ICD10 Diagnosis Term Capital Project Engineer Utility Vaginal Discharge/swelling 12/24/2009 Salivation excessive 09/04/2009 Loss of weight 04/24/2009 Hearing loss 05/22/2008 Overview: ICD10 Diagnosis Term Capital Project Engineer Utility Behavioral problems 04/17/2008 Overview: ICD10 Diagnosis Term Capital Project Engineer Utility Infantile cerebral palsy 07/23/2005 Overview: ICD10 Diagnosis Term Capital Project Engineer Utility Mental retardation 07/23/2005 Overview: ICD10 Diagnosis Term Capital Project Engineer Utility Microcephalus 07/23/2005 Generalized convulsive epilepsy Overview: ICD10 Diagnosis Term Capital Project Engineer Utility documented as of this encounter (statuses as of 02/13/2020) Resolved Problems Problem Noted Date Resolved Date Epilepsy complicating , childbirth, or the 09/07/20 08 12/24/2009 puerperium, unspecified as to episode of care or not applicable(649.40) Otitis media 09/07/2008 12/24/2009 Overview: ICD10 Diagnosis Term Capital Project Engineer Utility Allergic rhinitis 09/07/2008 12/24/2009 Overview: ICD10 Diagnosis Term Capital Project Engineer Utility documented as of this encounter (statuses as of 02/13/2020) Immunizations Name Administration Dates Next Due Depo Provera 04/16/2010 Influenza Virus Vaccine 12/24/2009, 09/07/2008, 09/16/2004 documented as of this encounter Social History Tobacco Use Types Packs/Day Years Used Date Never Smoker Smokeless Tobacco: Never Used Alcohol Use Drinks/Week oz/Week Comments Never Alcohol [...] Travel End No recent travel history available. documented as of this encounter Last Filed Vital Signs Not on filedocumented in this encounter Progress Notes Joshua Hernandez MD - 02/09/2020 9:20 AM CDT HISTORY OF PRESENT ILLNESS: Ladi Gates is a 29 year old female. Chief complaint: Six-month follow-up, past history of seizures, also cerebral palsy and developmental delay. History: The patient verbally consented to the televisit today. The visit was conducted by telehealth with patient at home and the physician in the office. No other participants were involved in the visit. The conversation was audio, and it was mainly a discussion with the mother of the patient. Therehave not been any other medical issues, and illnesses or need for other doctors appointments. The patient needs of primary care physician, she does not have one at the present time. During the history taking, I had also noticed that the patient is taking phenobarbital given by another provider, but itis only at 30 mg per day. She has continued to take the Keppra and also the Depakote. She has been taking Risperdal, chlorate is a patent and also trazodone. PMH: has a past medical history of Cerebral palsy and Epilepsy and recurrent seizures. Current Outpatient Medications: risperiDONE 2 mg tablet, Take 1 tablet by mouth at bedtime., Disp: 90 tablet, Rfl: 1 traZODone 50 mg tablet, Take 1 tablet by mouth at bedtime., Disp: 90 tablet, Rfl: 1 clorazepate 7.5 mg tablet, Take 1 tablet by mouth 2 (two) times daily., Disp: 60 tablet, Rfl: 5 levETIRAcetam 100 mg/mL oral solution, Take 7.5 mL by mouth 2 (two) times daily., Disp: 450 mL,Rfl: 5 valproic acid 250 mg/5 mL solution, Take 10 mL by mouth 2 (two) times daily., Disp: 600 mL, Rfl: 5 docusate (COLACE) 100 mg capsule, Take 1 capsule by mouth 3 (three) times daily., Disp: 21 capsule, Rfl: 0 montelukast (SINGULAIR) 5 mg chewable tablet, Take 5 mg by mouth., Disp: , Rfl: MULTIVITAMIN WITH MINERALS (FORMULA MULTIVIT & MINERAL ORAL), Take by mouth., Disp: , Rfl: acetaminophen (ARTHRITIS PAIN RELIEF, ACETAM,) 650 mg Tab, Take 650 mg by mouth every 6 (six) hours as needed for Pain or Headache and/or Pain., Disp: 20 Tab, Rfl: 0 Family History Problem Relation Age of Onset Diabetes Mother Social History Socioeconomic History Marital status: Single Spouse name: Not on file Number of children: Not on file Years of education: Not on file Highest education level: Not on file Occupational History Not on file Social Needs Financial resource strain: Not on file Food insecurity: Worry: Not on file Inability: Not on file Transportation needs: Medical: Not on file Non-medical: Not on file Tobacco Use Smoking status: Never Smoker Smokeless tobacco: Never Used Substance and Sexual Activity Alcohol use: Never Frequency: Never Drug use: Never Sexual activity: Not on file Lifestyle Physical activity: Days per week: Not on file Minutes per session: Not on file Stress: Not on file Relationships Social connections: Talks on phone: Not on file Gets together: Not on file Attends druze service: Not on file Active member of club or organization: Not on file Attends meetings of clubs or organizations: Not on file Relationship status: Not on file Intimate partner violence: Fear of current or ex partner: Not on file Emotionally abused: Not on file Physically abused: Not on file Forced sexual activity: Not on file Other Topics Concern Not on file Social History Narrative Lives at home with mother and father, no pets, no smokers. Not currently in school, no physical therapy. Patient not able to communicate with the examiner. ASSESSMENT AND RECOMMENDATIONS: ICD-10-CM ICD-9-CM 1. 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 Infantile cerebral palsy G80.9 343.9 Impression: She does need to get drug levels done, but otherwise no adjustments will be made to medication. The mother of the patient had called previous to this telemedicine call asking for a prescription for diapers, but this is not a prescription that neurology would cover . Creation of the note was aided by utilizing a cut/paste operation of text from a Microsoft Word template created with PWA. The text was dictated into the template via [employer]. documented in this encounter Plan of Treatment Name Type Priority Associated Diagnoses Order S chedule HEPATIC FUNCTION PANEL LAB Routine Generalized convul sive Expected: 02/09/2020, ([id number]) (ALB,T.PRO,BILI epilepsy Expi res: 02/08/2021 T,BU/BC,ALT,AST,ALK PHOS) PHENOBARBITAL LAB Routine Generalized convulsive Expe cted: 02/09/2020, epilepsy Expires: 2020 VALPROIC ACID, TOTAL LAB Routine Generalized convulsi ve Expected: 02/09/2020, epilepsy Expires: 2020 Health Maintenance Due Date Last Done Comments VARICELLA VACCINES (1 of 2 - 1992 2-dose childhood series) DTaP,Tdap,and Td Vaccines (1 2002 - Tdap) PAP SMEAR 2012 INFLUENZA VACCINE (#1) 2019 12/24/2009, 09/07/2008, 09/16/2004 PNEUMOCOCCAL 0-64 YEARS Aged Out No longe r eligible based COMBINED SERIES on patient's age to complete [facility] to [facility] documented as of this encounter Results Not on filedocumented in this encounter Visit Diagnoses Diagnosis Generalized convulsive epilepsy - Primar y Generalized convulsive epilepsy without mention of intractable epilepsy Infantile cerebral palsy Infantile cerebral palsy, unspecified documented in this encounter Insurance Payer Benefit Plan / Subscriber ID Effective Phone Address T e Group Dates [facility] MEDICAID OF xxxxxxxxx 2019-Pre [phone] Medi caid [place] sent [phone] [place] [address] [facility] [id number] 2019-Pres Medica re HEALTHCARE - HEALTHCARE ent Adv HM O MANAGED DUAL COMPLETE MEDICARE HMO documented as of this encounter Advance Directives Type Date Recorded Patient Server Explanati on Advance Directives and Living Will Power of Geoduck Diver Name Relationship Healthcare Agent Communication Relationship Funmiflorentino Sethi Mother Primary healthcare agent
--- OUTSIDE RECORDS SUMMARY | 2020-02-23 05:56 | XMS REPORT | Summary of Care ---
:[address] [facility] - Health Address [address] [place] [address] Care Team Providers Name Role Phone White Primary Care Provider Encounter Details Date Type Department Care Team Description 01/29/[address] [facility] Doctor Unassigned, No [address] [facility] [place] [address] [address] [place] [address] Allergies Active Allergy Reactions Severity Noted Date Comments Amoxicillin Rash Medium 08/30/2013 Haloperidol Lactate Extra pyramidal 02/01/2014 Tongu e swelling effects Lamotrigine Rash 11/03/2013 Penicillins Shortness of Breath 12/14/2018 Sulfa (Sulfonamide Rash 02/21/2019 Antibiotics) Azithromycin Other - See comments 06/22/2012 Family allergy so mother does not want pt to have documented as of this encounter (statuses as of 02/01/2020) Medications Medication Sig Dispensed Refills Start Date [...] as of this encounter (statuses as of 02/01/2020) Active Problems Problem Noted Date Urinary incontinence 06/06/2010 Overview: ICD10 Diagnosis Term Vegetable Packer Utility Incontinence of feces 06/06/2010 Overview: ICD10 Diagnosis Term Vegetable Packer Utility Vaginal Discharge/swelling 12/24/2009 Salivation excessive 09/04/2009 Loss of weight 04/24/2009 Hearing loss 05/22/2008 Overview: ICD10 Diagnosis Term Vegetable Packer Utility Behavioral problems 04/17/2008 Overview: ICD10 Diagnosis Term Vegetable Packer Utility Infantile cerebral palsy 07/23/2005 Overview: ICD10 Diagnosis Term Vegetable Packer Utility Mental retardation 07/23/2005 Overview: ICD10 Diagnosis Term Vegetable Packer Utility Microcephalus 07/23/2005 Generalized convulsive epilepsy Overview: ICD10 Diagnosis Term Vegetable Packer Utility documented as of this encounter (statuses as of 02/01/2020) Resolved Problems Problem Noted Date Resolved Date Epilepsy complicating , childbirth, or the 09/07/20 08 12/24/2009 puerperium, unspecified as to episode of care or not applicable(649.40) Otitis media 09/07/2008 12/24/2009 Overview: ICD10 Diagnosis Term Vegetable Packer Utility Allergic rhinitis 09/07/2008 12/24/2009 Overview: ICD10 Diagnosis Term Vegetable Packer Utility documented as of this encounter (statuses as of 02/01/2020) Immunizations Name Administration Dates Next Due Depo [...] Signs Not on filedocumented in this encounter Plan of Treatment Date Type Specialty Care Team Description 02/09/2020 Office Visit Neurology Joshua Hernandez MD [address] [place] [address] [phone] Health Maintenance Due Date Last Done Comments VARICELLA VACCINES (1 of 2 - 1992 2-dose childhood series) DTaP,Tdap,and Td Vaccines (1 2002 - Tdap) PAP SMEAR 2012 INFLUENZA VACCINE (#1) 2019 12/24/2009, 09/07/2008, 09/16/2004 PNEUMOCOCCAL 0-64 YEARS Aged Out No longe r eligible based COMBINED SERIES on patient's age to complete [facility] to [facility] documented as of this encounter Procedures Procedure Name Priority Date/Time Associated Diagnosis Comme nts OP CORRESPONDENCE Routine 01/29/2020 12:01 AM CDT documented in this encounter Results Not on filedocumented in this encounter Insurance Payer Benefit Plan / Subscriber ID Effective Phone Address T ype Group Dates [facility] MEDICAID OF xxxxxxxxx 2019-Pr [phone] Medic aid [place] esent [phone] [place] [address] [facility] [id number] 2019-Pre Medicar e Adv HEALTHCARE - HEALTHCARE sent HMO MANAGED DUAL COMPLETE MEDICARE HMO [facility] [id number] 2019-Pre P [address] BOX Beh avioral [facility]IOR[facility] sent [id number] [place] [address] documented as of this encounter Advance Directives Type Date Recorded 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
--- OUTSIDE RECORDS SUMMARY | 2020-02-23 05:56 | XMS REPORT | Summary of Care ---
:1990 Author Organization [facility] Address [address] [place] [address] Care Team Providers Name Role Phone White Primary Care Provider Reason for Visit Reason Comments Notification Encounter Details Date Type Department Care Team Description 02/08/2020 Telephone [facility] Joshua Hernandez MD Notification Neurology-[address] [place] [phone] [address] [place] [address] [facility] [phone] Allergies Active Allergy Reactions Severity Noted Date Comments Amoxicillin Rash Medium 08/30/2013 Haloperidol Lactate Extra pyramidal 02/01/2014 Tongu e swelling effects Lamotrigine Rash 11/03/2013 Penicillins Shortness of Breath 12/14/2018 Sulfa (Sulfonamide Rash 02/21/2019 Antibiotics) Azithromycin Other - See comments 06/22/2012 Family allergy so mother does not want pt to have documented as of this encounter (statuses as of 02/09/2020) Medications Medication Sig Dispensed Refills Start Date [...] as of this encounter (statuses as of 02/09/2020) Active Problems Problem Noted Date Urinary incontinence 06/06/2010 Overview: ICD10 Diagnosis Term Rn Training Utility Incontinence of feces 06/06/2010 Overview: ICD10 Diagnosis Term Rn Training Utility Vaginal Discharge/swelling 12/24/2009 Salivation excessive 09/04/2009 Loss of weight 04/24/2009 Hearing loss 05/22/2008 Overview: ICD10 Diagnosis Term Rn Training Utility Behavioral problems 04/17/2008 Overview: ICD10 Diagnosis Term Rn Training Utility Infantile cerebral palsy 07/23/2005 Overview: ICD10 Diagnosis Term Rn Training Utility Mental retardation 07/23/2005 Overview: ICD10 Diagnosis Term Rn Training Utility Microcephalus 07/23/2005 Generalized convulsive epilepsy Overview: ICD10 Diagnosis Term Rn Training Utility documented as of this encounter (statuses as of 02/09/2020) Resolved Problems Problem Noted Date Resolved Date Epilepsy complicating , childbirth, or the 09/07/20 08 12/24/2009 puerperium, unspecified as to episode of care or not applicable(649.40) Otitis media 09/07/2008 12/24/2009 Overview: ICD10 Diagnosis Term Rn Training Utility Allergic rhinitis 09/07/2008 12/24/2009 Overview: ICD10 Diagnosis Term Rn Training Utility documented as of this encounter (statuses as of 02/09/2020) Immunizations Name Administration Dates Next Due Depo [...] Date Type Specialty Care Team Description 02/09/2020 Telemedicine Visit Neurology Hong Hernandez rd, MD [address] [place] [phone] Health Maintenance Due Date Last Done Comments VARICELLA VACCINES (1 of 2 - 1992 2-dose childhood series) DTaP,Tdap,and Td Vaccines (1 2002 - Tdap) PAP SMEAR 2012 INFLUENZA VACCINE (#1) 2019 12/24/2009, 09/07/2008, 09/16/2004 PNEUMOCOCCAL 0-64 YEARS Aged Out No longe r eligible based COMBINED SERIES on patient's age to complete this to [facility] documented as of this encounter Results Not on filedocumented in this encounter Insurance Payer Benefit Plan / Subscriber ID Effective Phone Address T ype Group Dates [facility] MEDICAID OF xxxxxxxxx 2019-Pr [phone] Medic aid [place] esent [phone] [place] [address] [facility] [id number] 2019-Pre Medicar e Adv HEALTHCARE - HEALTHCARE sent HMO MANAGED DUAL COMPLETE MEDICARE HMO [facility] [id number] 2019-Pre P O BOX Beh avioral [facility]HAVIORAL BEHAVIORAL sent [phone] 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
--- NOTE | 2020-02-23 07:19 | ER ---
Nurse's Notes [facility] Name: Ladi Gates Age: 29 yrs Sex: Female : 1990 Arrival Date: 02/23/2020 Time: 05:53 Bed 2 Private MD: Diagnosis: Streptococcal pharyngitis;Constipation Presentation: 02/22 06:00 Chief complaint: Parent and/or Guardian states: She had a fever at home. My daughter jasmyn took it and she is not here with me. She felt really hot from her head to her neck and she keeps saying "I hurt.". 06:00 Coronavirus screen: Proceed with normal triage. Ebola Screen: No symptoms or risks jasmyn identified at this time. Initial Sepsis Screen: Does the patient meet any 2 criteria? No. Patient's initial sepsis screen is negative. Does the patient have a suspected source of infection? No. Patient's initial sepsis screen is negative. Risk Assessment: Do you want to hurt yourself or someone else? Patient reports no desire to harm self or others. Onset of symptoms was February 20, 2020. Transition of care: patient was not received from another setting of care. 06:00 Method Of Arrival: Wheelchair jb4 06:00 Acuity: ELINA 3 jb4 Historical: - Allergies: 06:00 Azithromycin; jb4 06:00 PENICILLINS; jb4 - Home Meds: 06:00 Atenolol Oral [Active]; clorazepate dipotassium 3.75 mg Oral tab [Active]; jb4 levetiracetam 100 mg/mL Oral soln 7.5 mL [Active]; lisinopril 20 mg Oral tab [Active]; phenobarbital 30 mg Oral tab [Active]; Risperdal 2 mg Oral tab 1 tab once daily [Active]; Trazodone Oral [Active]; valproic acid 250 mg Oral cap [Active]; - PMHx: 06:00 Cerebral Palsy; Hypertension; irregular heart beat; Seizures; jb4 - PSHx: 06:00 None; jb4 - Immunization history:: Adult Immunizations up to date. - Social history:: Smoking status: Patient denies any tobacco usage or history of. Patient/guardian denies using alcohol, street drugs. Screenin:00 Abuse screen: Denies threats or abuse. Nutritional screening: No deficits noted. jb4 Tuberculosis screening: No symptoms or risk factors identified. Fall Risk Secondary diagnosis (15 points) impaired mobility, Cerebral Palsy. Gait- Impaired (20 pts.). Mental Status- Overestimates/Forgets Limitations (15 pts.). Assessment: 06:00 General: Appears in no apparent distress. uncomfortable, Behavior is cooperative, PT is jb4 non verbal.. Pain: Unable to use pain scale. PT continues to say it hurts. Neuro: Level of Consciousness is awake, alert, Oriented to PT is unable to answer questions.. Cardiovascular: Patient's skin is warm and dry. Respiratory: Airway is patent Respiratory effort is even, unlabored, Respiratory pattern is regular, symmetrical. GI: Parent/caregiver reports the patient having constipation. : No signs and/or symptoms were reported regarding the genitourinary system. EENT: No signs and/or symptoms were reported regarding the EENT system. Derm: Skin is intact, Skin is dry, Skin is normal, Skin temperature is warm. Musculoskeletal: Circulation, motion, and sensation intact. 07:10 Reassessment: Patient appears in no apparent distress at this time. pt nonverbal, em listening to music, mother at bedside, respirations even and unlabored, skin pink warm and dry. Vital Signs: 06:00 BP 100 / 66; Pulse 93; Resp 18; Temp 98.6(TE); Pulse Ox 99% on R/A; Weight 22.68 kg (R);jb4 07:05 BP 102 / 55; Pulse 87; Resp 18; Pulse Ox 98% on R/A; em ED Course: 05:53 Patient arrived in ED. ds1 06:00 Arm band placed on right wrist. jb4 06:00 Patient has correct armband on for positive identification. Adult w/ patient. PT jb4 remains in wheelchair with guardian at the bedside. Pulse ox on. NIBP on. 06:01 Kristin Mckeon FNP-C is PHCP. snw 06:01 Lulu Beltran MD is Attending Physician. snw 06:06 Duane Hancock, DANNY is Primary Nurse. jb4 06:09 Triage completed. jb4 06:41 Straight cath inserted, using sterile technique, 16 Fr. Specimen obtained. lp1 06:52 Urine Culture Sent. ds4 06:52 Urine Microscopic Only Sent. ds4 06:52 Strep Sent. ds4 06:52 Flu Sent. ds4 07:39 No provider procedures requiring assistance completed. Patient did not have IV access em during this emergency room visit. Administered Medications: 07:20 Drug: Magnesium Citrate Liquid 300 ml Route: PO; em 07:38 Follow up: Response: No adverse reaction em 07:36 Drug: Clindamycin 200 mg Route: IM; Site: right gluteus; em 07:38 Follow up: Response: Medication administered at discharge. em Outcome: 07:18 Discharge ordered by . snw 07:39 Discharged to home via wheelchair, with family. em 07:39 Condition: stable 07:39 Discharge instructions given to family, Instructed on discharge instructions, follow up and referral plans. medication usage, Demonstrated understanding of instructions, follow-up care, medications, Prescriptions given X 1. 07:40 Patient left the ED. em Addendum: 02/27/2020 09:33 Addendum: Culture Results: Positive urine culture. Phone call Attempt #1 Spoke to pt's a a5 mother and instructed to follow up with PCP, results faxed to Dr. White (pt's PCP) per pt's mother request. Signatures: Kristin Mckeon, STORE ASSOCIATE-C STORE ASSOCIATE-Csnw Dima Ovalles, RN RN Catia Colby ds1 Carline Merritt RN RN aa5 Shala Singh RN RN lp1 Yang Steele ds4 Duane Hancock RN RN jb4
--- NOTE | 2020-02-23 07:19 | EDPHYS ---
Physician Documentation [facility] Name: Ladi Gates Age: 29 yrs Sex: Female : 1990 Arrival Date: 02/23/2020 Time: 05:53 Bed 2 Private MD: ED Physician Lulu Beltran HPI: 02/22 06:24 This 29 yrs old Black Female presents to ER via Wheelchair with complaints of Fever. snw 06:24 The patient reports fever, not measured (subjective). Onset: The symptoms/episode snw began/occurred suddenly, yesterday. Associated signs and symptoms: Pertinent positives: constipation. Severity of symptoms: At their worst the symptoms were mild. The patient has experienced similar episodes in the past. It is unknown whether or not the patient has recently seen a physician. Historical: - Allergies: 06:00 Azithromycin; jb4 06:00 PENICILLINS; jb4 - Home Meds: 06:00 Atenolol Oral [Active]; clorazepate dipotassium 3.75 mg Oral tab [Active]; jb4 levetiracetam 100 mg/mL Oral soln 7.5 mL [Active]; lisinopril 20 mg Oral tab [Active]; phenobarbital 30 mg Oral tab [Active]; Risperdal 2 mg Oral tab 1 tab once daily [Active]; Trazodone Oral [Active]; valproic acid 250 mg Oral cap [Active]; - PMHx: 06:00 Cerebral Palsy; Hypertension; irregular heart beat; Seizures; jb4 - PSHx: 06:00 None; jb4 - Immunization history:: Adult Immunizations up to date. - Social history:: Smoking status: Patient denies any tobacco usage or history of. Patient/guardian denies using alcohol, street drugs. ROS: 06:24 Eyes: Negative for injury, pain, redness, and discharge, ENT: Negative for injury, snw pain, and discharge, Neck: Negative for injury, pain, and swelling, Cardiovascular: Negative for chest pain, palpitations, and edema, Respiratory: Negative for shortness of breath, cough, wheezing, and pleuritic chest pain, Abdomen/GI: Negative for abdominal pain, nausea, vomiting, diarrhea, positive for constipation, Back: Negative for injury and pain, : Negative for injury, bleeding, discharge, and swelling, MS/Extremity: Negative for injury and deformity, Skin: Negative for injury, rash, and discoloration, Neuro: Negative for headache, weakness, numbness, tingling, and seizure, Psych: Negative for depression, anxiety, suicide ideation, homicidal ideation, and hallucinations. 06:24 Constitutional: Positive for body aches, fever. Exam: 06:23 Constitutional: This is a well developed, well nourished patient who is awake, alert, snw and in no acute distress. Head/Face: Normocephalic, atraumatic. Eyes: Pupils equal round and reactive to light, extra-ocular motions intact. Lids and lashes normal. Conjunctiva and sclera are non-icteric and not injected. Cornea within normal limits. Periorbital areas with no swelling, redness, or edema. no acute changes ENT: Nares patent. No nasal discharge, no septal abnormalities noted. Tympanic membranes are normal and external auditory canals are clear. Oropharynx with no redness, swelling, or masses, exudates, or evidence of obstruction, uvula midline. Mucous membranes moist. Neck: Trachea midline, no thyromegaly or masses palpated, and no cervical lymphadenopathy. Supple, full range of motion without nuchal rigidity, or vertebral point tenderness. No Meningismus. Chest/axilla: Normal chest wall appearance and motion. Nontender with no deformity. No lesions are appreciated. Cardiovascular: Regular rate and rhythm with a normal S1 and S2. No gallops, murmurs, or rubs. Normal PMI, no JVD. No pulse deficits. Respiratory: Lungs have equal breath sounds bilaterally, clear to auscultation and percussion. No rales, rhonchi or wheezes noted. No increased work of breathing, no retractions or nasal flaring. Abdomen/GI: Soft, non-tender, with normal bowel sounds. No distension or tympany. No guarding or rebound. No evidence of tenderness throughout. Back: No spinal tenderness. No costovertebral tenderness. Full range of motion. Skin: Warm, dry with normal turgor. Normal color with no rashes, no lesions, and no evidence of cellulitis. MS/ Extremity: Pulses equal, no cyanosis. Neurovascular intact. Full, normal range of motion. 06:23 Neuro: CP, no acute changes per family. Vital Signs: 06:00 BP 100 / 66; Pulse 93; Resp 18; Temp 98.6(TE); Pulse Ox 99% on R/A; Weight 22.68 kg (R);jb4 07:05 BP 102 / 55; Pulse 87; Resp 18; Pulse Ox 98% on R/A; em MDM: 06:01 Patient medically screened. snw 07:22 Data reviewed: vital signs, nurses notes, lab test result(s). Data interpreted: Pulse snw oximetry: on room air is 98 %. Interpretation: normal. Counseling: I had a detailed discussion with the patient and/or guardian regarding: the historical points, exam findings, and any diagnostic results supporting the discharge/admit diagnosis, lab results, the need for outpatient follow up, to return to the emergency department if symptoms worsen or persist or if there are any questions or concerns that arise at home. Special discussion: Based on the history and exam findings, there is no indication for further emergent testing or inpatient evaluation. I discussed with the patient/guardian the need to see the primary care provider for further evaluation of the symptoms. 02/22 06:16 Order name: Flu; Complete Time: 07:14 snw 02/22 06:16 Order name: Strep snw 02/22 06:16 Order name: Urine Culture snw 02/22 06:16 Order name: Urine Microscopic Only; Complete Time: 07:23 snw 02/22 07:09 Order name: Urine Dipstick--Ancillary (enter results); Complete Time: 07:30 ar5 02/22 07:09 Order name: Urine --Ancillary (enter results); Complete Time: 07:30 ar5 02/22 06:16 Order name: Urine Test (obtain specimen); Complete Time: 06:52 snw 02/22 06:16 Order name: Urine Dipstick-Ancillary (obtain specimen); Complete Time: 06:52 snw Administered Medications: 07:20 Drug: Magnesium Citrate Liquid 300 ml Route: PO; em 07:38 Follow up: Response: No adverse reaction em 07:36 Drug: Clindamycin 200 mg Route: IM; Site: right gluteus; em 07:38 Follow up: Response: Medication administered at discharge. em Disposition: 02/23/20 07:18 Discharged to Home. Impression: Streptococcal pharyngitis, Constipation. - Condition is Stable. - Discharge Instructions: Constipation, Adult, Ibuprofen Dosage Chart, Pediatric, Acetaminophen Dosage Chart, Pediatric, Fever, Adult, Rehydration, Pediatric, Strep Throat. - Prescriptions for Clindamycin Pediatric - take 1 Teaspoon by ORAL route 3 times per day; 160 milliliter. - Medication Reconciliation Form, Thank You Letter, Antibiotic Education, Prescription Opioid Use form. - Follow up: Emergency Department; When: As needed; Reason: Worsening of condition. Follow up: Private Physician; When: 2 - 3 days; Reason: Recheck today's complaints, Continuance of care, Re-evaluation by your physician. Addendum: 02/25/2020 17:25 Co-signature as Attending Physician, Lulu Beltran MD. m a2 Signatures: Dispatcher [employer] EDKristin Barron, FREDDY-C FIFTH HAND-Csnw Dima Ovalles RN RN Duane Us RN RN jb4 Lulu Betlran MD MD ma2 Corrections: (The following items were deleted from the chart) 02/22 07:40 07:18 02/23/2020 07:18 Discharged to Home. Impression: Streptococcal pharyngitis; em Constipation. Condition is Stable. Forms are Medication Reconciliation Form, Thank You Letter, Antibiotic Education, Prescription Opioid Use. Follow up: Emergency Department; When: As needed; Reason: Worsening of condition. Follow up: Private Physician; When: 2 - 3 days; Reason: Recheck today's complaints, Continuance of care, Re-evaluation by your physician. snw
[2020-02-23 07:21] LABS: Urine Bacteria <20 /HPF (<20); Urine Culture Reflex Order NOT NEEDED; Urine Mucus MOD /HPF (NONE SEEN); Urine RBC >50 /HPF (NONE SEEN)
[2020-02-23] MEDS ORDERED: MAGNESIUM CITRATE 300 ML BOT ONE (07:22)
[2020-02-23 07:23] LABS: Urine Blood 1+ (NEG); Urine Glucose NEGATIVE (NEG); Urine Protein NEGATIVE (NEG)
[2020-02-23] MEDS ORDERED: CLINDAMYCIN IV 150 MG/ML (4 mL) VIAL ONE (07:34)
[2020-02-23 08:43] VITALS: BP 102/55; TEMP 98.6; O2SAT 98
== END 2020-02-23 07:40 | disposition home or self-care (01) ==
LOC: ER 05:52
DX: J02.0 Streptococcal pharyngitis (principal); K59.00 Constipation, unspecified; I10 Essential (primary) hypertension; G40.909 Epilepsy, unspecified, not intractable, without status epilepticus; Z88.0 Allergy status to penicillin; Z88.1 Allergy status to other antibiotic agents
CPT/HCPCS: 87088; 87086; 81025; 87081; 87077; 87186; 87804 ×2; 51702; 96372; 99284; S0077; 81003; 81015

== ENCOUNTER 2021-03-06 14:47 | Inpatient (IN) | payer MEDICARE, OTHER ==
--- OUTSIDE RECORDS SUMMARY | 2021-03-06 14:50 | XMS REPORT | Continuity of Care Document ---
:1990 Author Organization [facility] t Address [address] [place] [address] Care Team Providers Name Role Phone Marbella DELGADO Attending Clinician Unavailable Shelly Dean MD Attending Clinician Jace JO Attending Clinician Wyatt Nunez MD, J Attending Clinician Oni JO Attending Clinician Agapito Brown DO Attending Clinician Doctor Unassigned, Name Attending Clinician Unavailable Provider, Urgent Care Attending Clinician Unavailable Wyatt Nunez MD, J Admitting Clinician Problems This patient has no known problems. Allergies, Adverse Reactions, Alerts This patient has no known allergies or adverse reactions. Medications This patient has no known medications. Procedures This patient has no known procedures. Encounters Start End Encounter Admission Attending Care Care Encounter Source Date/Time Date/Time Type Type Clinicians Facility Department ID 2021-02-24 2021-02-24 Transition Liss Tyson [id number] 00:00:00 00:00:00 of Care Anabell Guo [id number] Alfred [id number] 2021-02-07 2021-02-21 [facility] Tyshawn Dean [id number] 13:09:00 16:13:00 Encounter Filiberto Mccormick Johanny [id number] [facility] [id number] Ivan Bunn [id number] Marcellus Brown 095 2021-01-17 2021-01-17 Orders Doctor YUMI [id number] 00:00:00 00:00:00 Only Unassigned, JOHANNY [id number] [place] [facility] [id number] 2021-01-09 2021-01-09 Urgent Provider, [facility] [id number] 17:20:54 17:46:16 Care [facility] [id number] Care [place] [id number] Michael [id number] nal [address] Results This patient has no known results.
[2021-03-06 18:02] LABS: Absolute Lymphocytes (CBC) 2.9 K/uL (0.7-4.9); Basophils % 0.3 % (0-1.3); Hematocrit 33.2 % (36.0-45.0); Lymphocytes % 17.3 % (15.3-44.8); MPV 9.1 fL (7.6-11.3)
[2021-03-06 18:13] LABS: BUN Blood Urea Nitrogen 5 mg/dL (7-18); Bicarbonate 29 mmol/L (21-32); Glucose Level 134 mg/dL (74-106); Potassium 4.2 mmol/L (3.5-5.1); Sodium Level 144 mmol/L (136-145)
[2021-03-06 18:15] LABS: Protime INR 1.15
[2021-03-06] MEDS ORDERED: VANCOMYCIN 1 GM/VIAL ONE (18:43)
[2021-03-06] MEDS ORDERED: MORPHINE 2 MG/ML SYR ONE (18:43)
[2021-03-06] MEDS ORDERED: VANCOMYCIN IVPB ONE (19:00)
[2021-03-06] MEDS ORDERED: NA CHLORIDE 0.9% IVPB ONE (19:00)
--- NOTE | 2021-03-06 19:14 | EDPHYS ---
Physician Documentation [facility] Name: Ladi Gates Age: 30 yrs Sex: Female : 1990 Arrival Date: 03/06/2021 Time: 14:50 Bed 20 Private MD: ED Physician Justin Schaffer HPI: 03/06 16:15 This 30 yrs old Black Female presents to ER via Wheelchair with complaints of Skin cp Sore(s). 16:15 The patient presents with cellulitis of the coccyx. cp 16:15 Associated signs and symptoms: Pertinent positives: discharge, drainage, Pertinent cp negatives: fever. Mother reports patient has large pressure ulcer to coccyx area and that she was being treated at wound care clinic in [place]. Mother attempting to get care transferred to wound care at [facility] due to difficulty traveling to [place]. Mother reports noticing increased drainage from wound. 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 - Social history:: Smoking status: Patient denies any tobacco usage or history of. ROS: 16:20 Constitutional: Negative for fever. cp 16:20 Cardiovascular: Negative for edema. 16:20 Respiratory: Negative for cough, wheezing. 16:20 Abdomen/GI: Negative for vomiting, diarrhea, constipation. 16:20 Skin: Positive for cellulitis, of the coccyx, pressure ulcer. 16:20 All other systems are negative. cp Exam: 16:25 Constitutional: The patient appears in no acute distress, alert, awake, non-toxic, well cp developed, frail. 16:25 Head/Face: Normocephalic, atraumatic. cp 16:25 Eyes: Periorbital structures: appear normal, Conjunctiva: normal, no exudate, no injection, Sclera: no appreciated abnormality. 16:25 Chest/axilla: Inspection: normal, Palpation: is normal, no crepitus, no tenderness. 16:25 Cardiovascular: Rate: normal, Rhythm: regular, Edema: is not appreciated. 16:25 Respiratory: the patient does not display signs of respiratory distress, Respirations: normal, no use of accessory muscles, no retractions, labored breathing, is not present, Breath sounds: are clear throughout, no decreased breath sounds. 16:25 Abdomen/GI: Inspection: abdomen appears normal, Palpation: soft, in all quadrants, involuntary guarding, is not appreciated. 16:25 Skin: large pressure ulcer noted coccyx area with mild surrounding swelling and erythema, purulent discharge noted. Vital Signs: 15:07 BP 134 / 76; Pulse 82; Resp 18 S; Temp 98.2(TE); Pulse Ox 94% on R/A; Weight 39.92 kg ca1 (R); 16:30 BP 97 / 62; Pulse 102; Resp 15; Pulse Ox 99% on R/A; kg 18:32 BP 107 / 59; Pulse 116; Resp 22; Pulse Ox 98% on R/A; dh4 MDM: 16:01 Patient medically screened. 18:45 Physician consultation: Fabrice NOBLE was contacted at 18:45, regarding admission, to cp the medical/surgical unit. patient's condition, and will see patient in ED, shortly. 19:30 Data reviewed: vital signs, nurses notes, lab test result(s), radiologic studies, CT cp scan. 03/06 16:05 Order name: Wound Culture 03/06 16:05 Order name: CBC with Diff; Complete Time: 18:08 03/06 18:09 Interpretation: Normal except: WBC 16.50; RBC 3.70; HGB 10.5; HCT 33.2; MCHC 31.7; PLT cp 509; MN% 14.1; NEUT A 11.2. 03/06 16:05 Order name: BMP; Complete Time: 18:24 cp 03/06 16:05 Order name: PT-INR; Complete Time: 18:24 cp 03/06 16:05 Order name: Procalcitonin; Complete Time: 19:02 cp 03/06 19:02 Interpretation: Abnormal: Procalcitonin 0.06. cp 03/06 16:25 Order name: Lactate cp 03/06 16:25 Order name: Blood Culture Adult (2) cp 03/06 16:26 Order name: Lactate; Complete Time: 18:32 EDMS 03/06 19:38 Order name: SARS-COV-2 RT PCR; Complete Time: 20:19 EDMS 03/06 21:31 Order name: Lactate Sepsis 2 HR Follow-up; Complete Time: 21:33 EDMS 03/06 22:12 Order name: C-Reactive Protein EDMS 03/06 22:24 Order name: Sedimentation Rate, Clementeren EDMS 03/07 06:41 Order name: Comprehensive Metabolic Panel EDMS 03/06 16:25 Order name: IV; Complete Time: 17:37 cp 03/06 18:26 Order name: CT Abd/Pelvis - IV Contrast Only; Complete Time: 19:27 cp 03/06 19:28 Interpretation: Report reviewed. cp 03/06 20:16 Order name: CONS Physician Consult; Complete Time: 22:06 EDMS 03/07 06:41 Order name: Phosphorus EDMS 03/07 06:41 Order name: Magnesium EDMS 03/07 06:48 Order name: CBC with Automated Diff EDMS Administered Medications: 18:25 Drug: morphine 1 mg Route: IVP; Site: right forearm; kg 22:05 Follow up: Response: No adverse reaction cr4 19:35 Drug: vancoMYCIN 20 mg/kg Route: IVPB; Site: right forearm; kg 21:45 Follow up: IV Status: Completed infusion; IV Intake: 250ml cr4 19:35 Drug: NS 0.9% (30 ml/kg) 30 ml/kg Route: IV; Rate: bolus; Site: right forearm; kg 21:10 Follow up: Response: No adverse reaction; IV Status: Completed infusion; IV Intake: cr4 1200ml 22:03 Drug: Ativan (LORazepam) 0.5 mg Route: IM; Site: right deltoid; cr4 22:05 Drug: LevaQUIN (levofloxacin) 8 mg/kg Volume: 50 ml; Route: IVPB; Infused Over: 60 cr4 mins; Site: right forearm; 22:06 Not Given (mother did not want 2nd dose given.): morphine 1 mg IVP once; RASS on ADMIN: cr4 Combtv4, Very Agttd3, Agttd2, Rstlss1, AlertClm0, Drwsy-1, Lt Sdtn-2, Mod Sdtn-3, Dp Sdtn-4, UnArsble-5 Disposition: 19:30 Chart complete. cp Disposition: 03/06/21 19:13 Hospitalization ordered by Ralph Fabian for Inpatient Admission. Preliminary diagnosis are Open wound of lower back and pelvis, Cellulitis and acute lymphangitis of other sites - coccyx. - Bed requested for Telemetry/MedSurg (Inpatient). - Status is Inpatient Admission. hb - Condition is Stable. - Problem is an ongoing problem. - Symptoms have improved. Addendum: 03/10/2021 19:28 Co-signature as Attending Physician, Justin Schaffer MD. r n Signatures: Dispatcher [employer] EDME Susana Rosario RN RN dw Anna Mercedes RN RN Lety Hdz RN RN cr4 Justin Schaffer MD MD rn Page, Corey, PA PA cp Nury Hernandez RN RN Acob, Uyen RN Fabrice Beltre PA PA ej Graham, Kristen kg Corrections: (The following items were deleted from the chart) 03/06 18:09 17:32 CORONAVIRUS+MR.LAB.BRZ ordered. [facility] 22:17 19:13 Hospitalization Ordered by Ralph Fabian for Inpatient Admission. Preliminary diagnosis is Open wound of lower back and pelvis; Cellulitis and acute lymphangitis of other sites - coccyx. Bed requested for Telemetry/MedSurg (Inpatient). Status is Inpatient Admission. Condition is Stable. Problem is an ongoing problem. Symptoms have improved. cp 03/07 07:46 03/06 22:17 03/06/2021 19:13 Hospitalization Ordered by Ralph Fabian for Inpatient dw Admission. Preliminary diagnosis is Open wound of lower back and pelvis; Cellulitis and acute lymphangitis of other sites - coccyx. Bed requested for [facility] ER HOLD. Status is Inpatient Admission. Condition is Stable. Problem is an ongoing problem. Symptoms have improved. iw 03/07 09:24 07:46 03/06/2021 19:13 Hospitalization Ordered by Ralph Fabian for Inpatient hb Admission. Preliminary diagnosis is Open wound of lower back and pelvis; Cellulitis and acute lymphangitis of other sites - coccyx. Bed requested for Telemetry/MedSurg (Inpatient). Status is Inpatient Admission. Condition is Stable. Problem is an ongoing problem. Symptoms have improved. dw
--- NOTE | 2021-03-06 19:14 | ER ---
Nurse's Notes [facility] Name: Ladi Gates Age: 30 yrs Sex: Female : 1990 Arrival Date: 03/06/2021 Time: 14:50 Bed 20 Private MD: Diagnosis: Open wound of lower back and pelvis;Cellulitis and acute lymphangitis of other sites-coccyx Presentation: 03/06 15:07 Chief complaint: Parent and/or Guardian states: [place] on her back, you can put a fist ca1 in there. [place] has been there for months and been going to a wound care at [place] . Coronavirus screen: Client denies travel out of the [place] in the last 14 days. At this time, the client does not indicate any symptoms associated with coronavirus-19. Ebola Screen: Patient negative for fever greater than or equal to 101.5 degrees Fahrenheit, and additional compatible Ebola Virus Disease symptoms Patient denies exposure to infectious person. Patient denies travel to an Ebola-affected area in the 21 days before illness onset. No symptoms or risks identified at this time. Initial Sepsis Screen: Does the patient meet any 2 criteria? No. Patient's initial sepsis screen is negative. Does the patient have a suspected source of infection? No. Patient's initial sepsis screen is negative. Risk Assessment: Do you want to hurt yourself or someone else? Patient reports no desire to harm self or others. Onset of symptoms was March 06, 2021. 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 - Social history:: Smoking status: Patient denies any tobacco usage or history of. Screenin:00 Nutritional screening: No deficits noted. Tuberculosis screening: No symptoms or risk kg factors identified. Fall Risk Secondary diagnosis (15 points) impaired mobility, Gait- Normal/Bed Rest/Wheelchair (0 pts) Mental Status- Overestimates/Forgets Limitations (15 pts.). 18:40 Abuse screen: Denies threats or abuse. kg Assessment: 15:48 General: Appears distressed, Behavior is agitated, anxious, fussy, restless. Pain: kg Unable to use pain scale. FLACC scale score is 6 out of 10. Neuro: Level of Consciousness is awake, alert. Cardiovascular: No deficits noted. Respiratory: No deficits noted. GI: No deficits noted. : No deficits noted. EENT: No deficits noted. 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 Decubitus located on sacrum approximately > 20 cm is stage IV has macerated edges bed has granulation present is draining moderate amount malodorous, purulent. Vital Signs: 15:07 BP 134 / 76; Pulse 82; Resp 18 S; Temp 98.2(TE); Pulse Ox 94% on R/A; Weight 39.92 kg ca1 (R); 16:30 BP 97 / 62; Pulse 102; Resp 15; Pulse Ox 99% on R/A; kg 18:32 BP 107 / 59; Pulse 116; Resp 22; Pulse Ox 98% on R/A; dh4 ED Course: 14:50 Patient arrived in ED. am2 15:10 Inserted saline lock: 22 gauge in right forearm, using aseptic technique. kg 15:13 Triage completed. ca1 15:14 Arm band placed on right wrist. ca1 15:44 Alexy Medeiros PA is PHCP. cp 15:44 Justin Schaffer MD is Attending Physician. cp 16:00 Patient has correct armband on for positive identification. Allergy band placed. Fall kg risk band placed. Bed in low position. Call light in reach. Side rails up X2. 16:00 No provider procedures requiring assistance completed. kg 17:06 Madelyn Hardwick is Primary Nurse. kg 17:37 Lactate Sent. kg 17:37 Blood Culture Adult (2) Sent. kg 17:37 Lactate Sent. kg 17:37 Procalcitonin Sent. kg 17:37 PT-INR Sent. kg 17:37 CBC with Diff Sent. kg 17:37 BMP Sent. kg 17:37 Wound Culture Sent. kg 18:25 Notified Nurse Practitioner and/or Physician Education Intern of a critical lab result(s), aa5 Lactate 4.8. 18:[address]. kg 19:03 CT Abd/Pelvis - IV Contrast Only In Process Unspecified. EDMS 19:[address] Scan. kg 19:12 Ralph Fabian is Hospitalizing Provider. cp 19:20 Report given to Lety DELGADO. kg 03/07 06:32 Patient admitted, IV remains in place. ea Administered Medications: 03/06 18:25 Drug: morphine 1 mg Route: IVP; Site: right forearm; kg 22:05 Follow up: Response: No adverse reaction cr4 19:35 Drug: vancoMYCIN 20 mg/kg Route: IVPB; Site: right forearm; kg 21:45 Follow up: IV Status: Completed infusion; IV Intake: 250ml cr4 19:35 Drug: NS 0.9% (30 ml/kg) 30 ml/kg Route: IV; Rate: bolus; Site: right forearm; kg 21:10 Follow up: Response: No adverse reaction; IV Status: Completed infusion; IV Intake: cr4 1200ml 22:03 Drug: Ativan (LORazepam) 0.5 mg Route: IM; Site: right deltoid; cr4 22:05 Drug: LevaQUIN (levofloxacin) 8 mg/kg Volume: 50 ml; Route: IVPB; Infused Over: 60 cr4 mins; Site: right forearm; 22:06 Not Given (mother did not want 2nd dose given.): morphine 1 mg IVP once; RASS on ADMIN: cr4 Combtv4, Very Agttd3, Agttd2, Rstlss1, AlertClm0, Drwsy-1, Lt Sdtn-2, Mod Sdtn-3, Dp Sdtn-4, UnArsble-5 Intake: 21:10 IV: 1200ml; Total: 1200ml. cr4 21:45 IV: 250ml; Total: 1450ml. cr4 Outcome: 19:13 Decision to Hospitalize by Provider. cp 03/07 06:32 Admitted to ER Hold. Please see [facility] for further documentation. ea Condition: stable Instructed on the need for admit. 09:24 Patient left the ED. Signatures: Dispatcher [employer] EDMS Lety Hdz RN RN cr4 Carline Merritt RN RN aa5 Alexy Medeiros PA PA cp Nury Hernandez RN RN Rhona Mata am2 Earlene Valadez RN Uyen Copeland ea, RN RN ca1 [facility] Madelyn Hardwick kg Corrections: (The following items were deleted from the chart) 03/06 18:09 17:36 CORONAVIRUS+ drawn and sent. kg EDMS
--- NOTE | 2021-03-06 19:26 | RAD REPORT ---
EXAM DESCRIPTION: CTAbdomen Pelvis W Contrast - 03/06/2021 7:03 pm CLINICAL HISTORY: Abdominal pain. coccyx ulcer COMPARISON: Abdomen Pelvis W Contrast dated 01/27/2019 TECHNIQUE: Biphasic CT imaging of the abdomen and pelvis was performed with 100 ml non-ionic IV cont rast. All CT scans are performed using dose optimization technique as appropriate and may include automated exposure control or mA/KV adjustment according to patient size. FINDINGS: The lung bases are clear. The liver, spleen, adrenal glands and kidneys are within normal limits. There is a 27 mm cystic lesio n in the region of the pancreatic tail. This is a new finding since the comparative study. No bowel obstruction, free air, free fluid or abscess. Moderate stool is retained throughout the colo n. The appendix is normal. No evidence of significant lymphadenopathy. Large soft tissue ulceration is seen in the region of inferior sacrum and coccyx. No drainable absces s seen. No evidence of osteomyelitis. IMPRESSION: Large soft tissue ulceration in the sacral coccygeal region. No drainable abscess in the region. No underlying osteomyelitis findings evident. Interval development of a cystic mass measuring 27 mm involving the tail of the pancreas. Pancreatic pseudocyst and pancreatic cystic neoplasm would be the primary considerations. Follow-up nonemergent MRI of the pancreas would be recommended for further assessment.
[2021-03-06] MEDS ORDERED: NA CHLORIDE 0.9% 250 ML ONE (19:39)
[2021-03-06] MEDS ORDERED: NA CHLORIDE 0.9% 1,000 ML ONE ×2 (19:40→21:25)
--- NOTE | 2021-03-06 20:40 | P.HP ---
Certification for Inpatient Patient admitted to: Inpatient With expected LOS: >2 Midnights Patient will require the following post-hospital care: Home Health Services Practitioner: I am a practitioner with admitting privileges, knowledge of patient current condition, hospital course, and medical plan of care. Services: Services provided to patient in accordance with Admission requirements found in Title 42 Section 412.3 of the Code of Federal Regulations Patient History Date of Service: 03/06/21 Primary Care Provider: Dr. White Reason for admission: stage IV sacral pressure ulcer History of Present Illness: Ms. Gates is a 30 yo F with cerebral palsy, epilepsy here today for a stage IV sacral pressure ulcer. Per mom, she was recently hospitalized in the ICU about a month ago for hypotension and developed the pressure ulcer during her stay. Mom has been driving her to [facility] for wound care treatment once a week for the past month, last cleaned and dressed on Wednesday. She has not been taking oral antibiotics. Denies nausea, and vomiting but reports daughter seems to be in pain and subjectively feels hot. Has been receiving OTC pain relievers at home. In the hospital, she was receiving crushed Vicodin. WBC 16.5. Lactate 4.8. Procal 0.06. CT shows large soft tissue ulceration in the sacral coccygeal region, no drainable abscess in the region, no underlying osteomyelitis findings evident. Interval development of a cystic mass measuring 27mm involving the tail of the pancreas, pancreatic psuedocyst and pancreatic cystic neoplasm would be primary considerations, followup nonemergent MRI of pancreas recommended. Allergies amoxicillin Allergy (Verified 01/27/19 22:45) Itching/Hives/Rash Penicillins Allergy (Verified 01/27/19 22:45) Itching/Hives/Rash azithromycin [From Zithromax] Adverse Reaction (Unknown, Verified 01/27/19 22:44) Itching/Hives/Rash Home Medications: Clorazepate Dipotassium 7.5 mg PO BID 01/27/19 PHENobarbitaL [Phenobarbital] 30 mg PO BEDTIME 01/27/19 Risperidone [Risperdal] 2 mg PO BEDTIME 01/27/19 Trazodone [Desyrel*] 50 mg PO BEDTIME 01/27/19 Valproic Acid Syrup [Depakene Syrup*] 10 ml PO BID 01/27/19 atenoloL [Atenolol] 100 mg PO BEDTIME 01/27/19 levETIRAcetam [Levetiracetam] 7.5 ml PO BID 01/27/19 lisinopriL [Lisinopril] 20 mg PO BEDTIME 01/27/19 Phenylephrine/Dm/Acetaminop/GG [Mucinex Fast-Max Sev Cold Liq] 180 ml PO BID #1 bottle 01/29/19 - Past Medical/Surgical History Diabetic: No -: cerebral palsy -: hypertension -: irregular heartbeat -: epilepsy -: none - Family History Mother -: Hypertension, Diabetes - Social History Smoking Status: Never smoker Alcohol use: No CD- Drugs: No Caffeine use: Yes Place of Residence: Home Review of Systems General: Fever, Unremarkable Eyes: Unremarkable ENT: Unremarkable Respiratory: Unremarkable Cardiovascular: Unremarkable Gastrointestinal: Unremarkable Genitourinary: Unremarkable Musculoskeletal: Back Pain, As per HPI Integumentary: Lesions, As per HPI Neurological: Unremarkable Lymphatics: Unremarkable Physical Examination - Physical Exam General: Alert, Cachectic, Other (cerebal palsy) HEENT: Atraumatic, Normocephalic, PERRLA, Mucous membr. moist/pink, EOMI, Sclerae nonicteric Neck: Supple, 2+ carotid pulse no bruit, JVD not distended, No Thyromegaly, No LAD Respiratory: Clear to auscultation bilaterally, Normal air movement Cardiovascular: No edema, Normal pulses, Regular rate/rhythm, Normal S1 S2, No gallops, No rubs, No murmurs Capillary refill: <2 Seconds Gastrointestinal: Normal bowel sounds, Soft and benign, Non-distended, No ascites, No tenderness, No masses, No rebound, No guarding Musculoskeletal: No clubbing, No swelling, No contractures, No erythema, No tenderness, No warmth Integumentary: Skin breakdown, Pressure ulcer, Other (stage IV, purulent drainage) Neurological: Other (wheelchair bound, at baseline functioning per mom) Lymphatics: No axilla or inguinal lymphadenopathy - Studies Laboratory Data (last 24 hrs) 03/06/21 17:30: PT 13.2 H, INR 1.15 03/06/21 17:30: Sodium 144, Potassium 4.2, BUN 5 L, Creatinine 0.64, Glucose 134 H 03/06/21 17:30: WBC 16.50 H, Hgb 10.5 L, Hct 33.2 L, Plt Count 509 H Assessment and Plan - Problems (Diagnosis) (1) Cerebral palsy Current Visit: Yes Status: Chronic Qualifiers: Cerebral palsy type: unspecified type Qualified Code(s): G80.9 - Cerebral palsy, unspecified (2) Epilepsy Current Visit: Yes Status: Chronic Qualifiers: Epilepsy type: unspecified Intractability: not intractable Status epilepticus: without status epilepticus Qualified Code(s): G40.909 - Epilepsy, unspecified, not intractable, without status epilepticus (3) Stage IV pressure ulcer Current Visit: Yes Status: Acute Qualifiers: Pressure injury location: sacral region Qualified Code(s): L89.154 - Pressure ulcer of sacral region, stage 4 - Plan Surgery and ID consulted NPO at midnight, SCDs will continue vancomycin q12h and levaquin q24h blood cultures and wound cultures pending continue IVF morphine 2mg q4hr for pain control ESR, CRP pending will reconcile and continue home medications dietitian consulted, social work consult for home health nurse Discharge Plan: Home Plan to discharge in: 72 Hours - Advance Directives Does patient have a Living Will: No Does patient have a Durable POA for Healthcare: Yes - Code Status/Comfort Care Code Status Assessed: Yes (full code) Critical Care: No Time Spent Managing Pts Care (In Minutes): 70
[2021-03-06] MEDS ORDERED: ACETAMINOPHEN 500 MG TAB PO PRN (21:03)
[2021-03-06] MEDS ORDERED: MORPHINE 2 MG/ML SYR IV PRN (21:03)
[2021-03-06] MEDS: NA CHLORIDE 0.9% 1,000 ML IV SCH (21:03)
[2021-03-06] MEDS ORDERED: ONDANSETRON 4 MG/2 ML VIAL IV PRN (21:03)
[2021-03-06] MEDS ORDERED: HYDROCODONE/APAP 5/325 MG TAB PO PRN (21:06)
[2021-03-06] MEDS ORDERED: TRAZODONE 50 MG TABLET PO SCH (21:13)
[2021-03-06] MEDS ORDERED: LORazepam 2 MG/ML VIAL ONE (22:14)
[2021-03-06] MEDS ORDERED: Levofloxacin500mg IV 500 MG/100 ML BAG IV ONE (22:14)
[2021-03-06] MEDS: ATORVASTATIN 20 MG TAB PO SCH (22:24)
[2021-03-06] MEDS ORDERED: ZIPRASIDONE MESYLA 20 MG/VIAL IM ONE ×2 (22:35→23:00)
[2021-03-06] MEDS ORDERED: WATER FOR INJ,STERILE 10 ML IM PRN (22:35)
[2021-03-06] MEDS ORDERED: HYDROCODONE/APAP 5/325 MG TAB ONE (22:42)
[2021-03-06] MEDS ORDERED: levETIRAcetam 500 MG TAB ONE (22:43)
[2021-03-06] MEDS: FENTANYL CITR 100 MCG/2 ML IV PRN (23:00)
[2021-03-06] MEDS ORDERED: FENTANYL CITR 100 MCG/2 ML ONE (23:00)
[2021-03-06] MEDS ORDERED: WATER FOR INJ,STERILE 10 ML ONE (23:01)
[2021-03-06] MEDS ORDERED: levETIRAcetam 500 MG/5 ML OSYR ONE (23:53)
[2021-03-07 05:58] LABS: Basophils % 0.3 % (0-1.3); Hematocrit 22.7 % (36.0-45.0); RBC Red Blood Cell Count 2.53 M/uL (3.86-4.86)
[2021-03-07 06:37] LABS: ALT/SGPT 14 U/L (12-78); AST/SGOT 17 U/L (15-37); Albumin 1.9 g/dL (3.4-5.0); Alkaline Phosphatase 88 U/L (45-117); BUN Blood Urea Nitrogen 2 mg/dL (7-18); Bicarbonate 24 mmol/L (21-32); Bilirubin Total 0.3 mg/dL (0.2-1.0); Glucose Level 97 mg/dL (74-106); Magnesium 1.6 mg/dL (1.8-2.4); Phosphorus 3.2 mg/dL (2.5-4.9); Protein, Total 5.9 g/dL (6.4-8.2); Sodium Level 146 mmol/L (136-145)
[2021-03-07] MEDS ORDERED: VANCOMYCIN 750 MG in NA CHLORIDE 0.9% 150 ML IVPB SCH ×2 (07:00→09:00)
[2021-03-07] MEDS: NA CHLORIDE 0.9% 1,000 ML IV SCH (07:03)
[2021-03-07] MEDS ORDERED: NA CHLORIDE 0.9% 1,000 ML ONE (08:28)
[2021-03-07] MEDS ORDERED: FENTANYL CITR 100 MCG/2 ML ONE (08:28)
[2021-03-07] MEDS: FENTANYL CITR 100 MCG/2 ML IV PRN (08:28)
[2021-03-07] MEDS ORDERED: ACETAMINOPHEN 160 MG/5 ML UCUP ONE (08:30)
[2021-03-07] MEDS ORDERED: HALOPERIDOL LACT 5 MG/ML INJ IV PRN (08:45)
[2021-03-07] MEDS ORDERED: HALOPERIDOL LACT 5 MG/ML INJ ONE (09:03)
--- NOTE | 2021-03-07 10:26 | P.CNS ---
Date of Consult: 03/07/21 Primary Care Provider: Dr. White Chief Complaint: stage IV sacral pressure ulcer History of Present Illness: This is the patient is a 30-year-old female with a past medical history of cerebral palsy and epilepsy who presented to the ED with a stage IV left but tocks pressure ulcer. Per mother the patient was hospitalized about a month ago due to hypotension and that is when the sore developed. Patient has been going to [facility] weekly for wound care treatment over the past month. Unsure the exact treatments they were giving at the [facility]. In the ED patient was found to be febrile, hypotensive, with leukocytosis and elevated lactic acid . Blood cultures are pending, wound cultures final report pending. Preliminary results showed mixed skin bre. Patient started on vancomycin and Levaquin. Patient responding well to antibiotics with decreased WBC at 12.9. Patient had significant anemia with a hemoglobin of 7.0, no known source of bleeding at this time. Patient denies blood in stool or urine. Continue to monitor closely, fe usman occult blood test has been ordered. Unable to obtain history from patient, per mom patient does not have any nausea, vomiting, diarrhea, chest pain or shortness. Patient aerating well on room air. Allergies amoxicillin Allergy (Verified 01/27/19 22:45) Itching/Hives/Rash Penicillins Allergy (Verified 01/27/19 22:45) Itching/Hives/Rash azithromycin [From Zithromax] Adverse Reaction (Unknown, Verified 01/27/19 22:44) Itching/Hives/Rash Home Medications: Clorazepate Dipotassium 7.5 mg PO BID 01/27/19 Risperidone [Risperdal] 2 mg PO BEDTIME 01/27/19 Trazodone [Desyrel*] 50 mg PO BEDTIME 01/27/19 atenoloL [Atenolol] 100 mg PO BEDTIME 01/27/19 levETIRAcetam [Levetiracetam] 7.5 ml PO BID 01/27/19 lisinopriL [Lisinopril] 20 mg PO BEDTIME 01/27/19 Simvastatin 20 mg PO BEDTIME 03/06/21 Megestrol [Megace*] 800 mg PO DAILY 03/07/21 PHENobarbitaL [Phenobarbital] 20 mg PO DAILY 03/07/21 - Past Medical/Surgical History Diabetic: No -: cerebral palsy -: hypertension -: irregular heartbeat -: epilepsy -: none - Family History Mother Medical History: Hypertension, Diabetes - Social History Smoking Status: Never smoker Alcohol use: No CD- Drugs: No Caffeine use: Yes Place of Residence: Home Review of Systems 10-point ROS is otherwise unremarkable Physical Examination Temp Pulse Resp BP Pulse Ox 98.7 F 142 H 18 177/87 H 93 03/07/21 09:00 03/07/21 09:00 03/07/21 09:00 03/07/21 09:00 03/07/21 09:00 General: In no apparent distress HEENT: Atraumatic, Normocephalic Neck: Supple, 2+ carotid pulse no bruit Respiratory: Clear to auscultation bilaterally, Normal air movement Cardiovascular: No edema, Normal pulses, Regular rate/rhythm Capillary refill: <2 Seconds Gastrointestinal: Normal bowel sounds Integumentary: Pressure ulcer (stage 4 pressure uler to left buttock-base of wound shows mixed of fibrin granulation tissue. Wound less than 1 cm in depth.. When tissues clean dry and intact with no clinical signs infection. I will active drainage or bleeding noted.) Laboratory Data (last 24 hrs) 03/06/21 17:30: PT 13.2 H, INR 1.15 03/06/21 17:30: Sodium 144, Potassium 4.2, BUN 5 L, Creatinine 0.64, Glucose 134 H 03/06/21 17:30: WBC 16.50 H, Hgb 10.5 L, Hct 33.2 L, Plt Count 509 H Conclusions/Impression: Antibiotics: Vancomycin start: 03/07 stop:-- Levaquin start: 03/07 stop: -- Patient is allergic to penicillins and azithromycin. Assessment: 1. Stage IV pressure ulcer to left buttocks 2. Fever and leukocytosis 3. Protein caloric malnutrition 4. Cerebral palsy 5. Epilepsy Plan: 1. Dr. Franco on case-managing wound. Wound care orders: Santal and foam. Wound culture: Preliminary report showed mixed skin bre, awaiting full report. Patient also started on supplemental vitamins: Vitamin C, zinc, and multi-vitamin. Air mattress ordered. No surgical intervention needed at this time. 2. Continue IV vancomycin and Levaquin. Awaiting full report of wound culture. Blood cultures pending. Adjust antibiotic regimen based off of wound and blood culture reports. Leukocytosis down trending. Inflammatory markers: Procal unremarkable, CRP elevated at 20.6. Order weekly CRP to trend. Lactic acid now within normal range. 3. Patient has low albumin-supplemental ensure drinks ordered with each meal. -medical management per primary team -continue monitor CBC and BMP -Continue monitor for signs infection Plan of care discussed with Dr. Mauro. Thank you for consultation.
[2021-03-07] MEDS ORDERED: NA CHLORIDE 0.9% 250 ML IV SCH (11:00)
--- NOTE | 2021-03-07 12:16 | CON ---
Date of Consultation: 03/06/2021 Reason: Sacral decubitus pressure ulcer infection. History Of Present Illness: The patient is a 30-year-old female with cerebral palsy, epilepsy, unabl e to give any review of systems and she has her grandmother with her and grandmother is little confus ed about the history as well, but essentially she appears to have an infected wound on her sacrum. I was asked to evaluate. There was no purulent discharge. She is being seen for her wound care in [facility], however, it's hard for her to travel over there and therefore she came to this hospital. Wound was last cleaned and dressed a week ago. She was supposed to be taking oral antibiotics, but s he did not. Her septic numbers are up with elevated lactate, white count and procalcitonin. CT weiss sammy does not show any evidence of osteo. No sore throat, runny nose, cough, headaches, or dizziness. She does have fever however. Review of Systems: Otherwise unremarkable. Past Medical History: Significant for cerebral palsy, hypertension, epilepsy abnormal heartbeat. Allergies: INCLUDE AMOXICILLIN, PENICILLIN, AZITHROMYCIN. Social History: The patient does not smoke or drink alcohol. Family History: Significant for diabetes and hypertension. Physical Examination: Vital Signs: T-max is a 100.7, currently is 98.7. She is tachycardiac. Blood pressure is 177/87. General: She is awake, confused. Head and Neck: No masses. Chest: Clear. Heart: S1, S2. Abdomen: Soft. Extremities: Low contracted sacrum. There is approximately an 8 x 6 cm circular decubitus stage III at least, may be stage IV with minimal undermining approximately a centimeter all the way around and minimal fibrin. Good granulation tissue however and there is some erythema and tenderness around th e wound consistent with cellulitis. No drainable fluid collection or abscess visualized. Laboratory Data: Her white count this morning is 12.9, H and H are 7 and 22.7. Her sed rate is 76. INR is 1.15. Her lactic acid was 4.8, currently is 1.2. Procalcitonin was 0.06. Her albumin is 1. 9. CT of the abdomen and pelvis reviewed. Again, it does not show any evidence of osteomyelitis, ho wever, there is a cystic mass measuring 27 mm involving the tail of pancreas. MRI is recommended of the pancreas. Assessment: A 30-year-old female with multiple medical problems and infected sacral decubitus with p ancreatic mass and anemia. Recommendation: Nutritional optimization with Ensure, calorie count, vitamins as ordered, air mattress, offloading, b road-spectrum IV antibiotics until cultures come back, then appropriate antibiotics. MRI for the velázquez creatic mass and anemia workup. Discussed the plan of care with Dr. Fabian. NIECY/SUZETTE Voice ID: [id number] Report ID: [id number]
[2021-03-07] MEDS: COLLAGENASE 30 GM OINTMENT TOP SCH (12:27)
[2021-03-07] MEDS: levETIRAcetam 500 MG/5 ML OSYR PO SCH ×3 (13:04→20:21)
--- NOTE | 2021-03-07 13:04 | P.PN ---
Subjective Date of Service: 03/07/21 Primary Care Provider: Dr. White Chief Complaint: stage IV sacral pressure ulcer Patient very agitated and screaming. She has fever of 100.7 Physical Examination - Vital Signs Temperature: 98.7 F Blood Pressure: 177/87 Pulse: 142 Respirations: 18 Pulse Ox (%): 93 - Physical Exam General: Other (Awake, agitated) HEENT: Mucous membr. moist/pink Respiratory: Clear to auscultation bilaterally, Normal air movement Cardiovascular: No edema, Normal S1 S2, Other (Tachycardia) Gastrointestinal: Soft and benign, Non-distended, No tenderness Musculoskeletal: Contractures (Bilateral lower extremities and upper extremities) Integumentary: Pressure ulcer (Stage 4-sacrum.) Neurological: Other (No focal motor deficit) - Studies Laboratory Data (last 24 hrs) 03/06/21 17:30: PT 13.2 H, INR 1.15 03/06/21 17:30: Sodium 144, Potassium 4.2, BUN 5 L, Creatinine 0.64, Glucose 134 H 03/06/21 17:30: WBC 16.50 H, Hgb 10.5 L, Hct 33.2 L, Plt Count 509 H Assessment And Plan - Current Problems (Diagnosis) (1) Cellulitis Current Visit: Yes Status: Acute (2) Stage IV pressure ulcer Current Visit: Yes Status: Acute Qualifiers: Pressure injury location: sacral region Qualified Code(s): L89.154 - Pressure ulcer of sacral region, stage 4 (3) Cerebral palsy Current Visit: Yes Status: Chronic Qualifiers: Cerebral palsy type: unspecified type Qualified Code(s): G80.9 - Cerebral palsy, unspecified (4) Epilepsy Current Visit: Yes Status: Chronic Qualifiers: Epilepsy type: unspecified Intractability: not intractable Status epilepticus: without status epilepticus Qualified Code(s): G40.909 - Epilepsy, unspecified, not intractable, without status epilepticus (5) Severe protein-calorie malnutrition Current Visit: Yes Status: Acute (6) Chronic anemia Current Visit: Yes Status: Acute - Plan Case discussed with Dr. Franco. Per Dr. Franco, no need for surgical debridement. Continue IV antibiotics. Pain medications as needed. Follow blood cultures. Feeding as tolerated. Transfuse 1 unit PRBC for anemia Consult to nutrition. Continue Risperdal for behavioral abnormality. Continue Anti-seizure medications.
[2021-03-07] MEDS ORDERED: ENSURE HIGH PROTEIN 237 ML CAN PO SCH (14:00)
[2021-03-07] MEDS: RISPERIDONE 1 MG TABLET PO SCH (20:22)
[2021-03-07] MEDS: ATORVASTATIN 20 MG TAB PO SCH (20:23)
[2021-03-07] MEDS: atenoloL 50 MG TAB PO SCH (20:23)
[2021-03-07] MEDS: lisinopriL 20 MG TAB PO SCH (20:29)
[2021-03-07] MEDS: Levofloxacin 750mg IV 750 MG/150 ML BAG IV SCH (20:37)
[2021-03-07] MEDS: ENSURE ENLIVE 237 ML CAN PO SCH (20:40)
[2021-03-07 20:49] LABS: Hematocrit 29.9 % (36.0-45.0)
[2021-03-07] MEDS: VANCOMYCIN 750 MG in NA CHLORIDE 0.9% 250 ML IVPB SCH (21:00)
[2021-03-07] MEDS ORDERED: HOME MED 1 EA UNK (Risperidone [Risperdal] 2 MG Tablet) PO SCH (21:00)
[2021-03-07] MEDS ORDERED: ATORVASTATIN 10 MG TAB PO SCH (21:00)
[2021-03-07] MEDS ORDERED: HOME MED 1 EA UNK (Atenolol [Atenolol] 100 MG Tablet) PO SCH (21:00)
[2021-03-07] MEDS ORDERED: ENSURE ENLIVE 237 ML CAN PO SCH (21:00)
[2021-03-07] MEDS ORDERED: levETIRAcetam 500 MG/5 ML OSYR PO SCH (21:11)
[2021-03-07] MEDS ORDERED: ZIPRASIDONE MESYLA 20 MG/VIAL IM ONE (22:18)
[2021-03-07] MEDS ORDERED: WATER FOR INJ,STERILE 10 ML IM PRN (22:18)
[2021-03-07] MEDS: TRAZODONE 50 MG TABLET PO PRN (22:36)
[2021-03-08] MEDS: JUVEN PACKET PO SCH ×3 (00:58→21:00)
[2021-03-08] MEDS: NA CHLORIDE 0.9% 1,000 ML IV SCH ×4 (03:03→22:06)
[2021-03-08] MEDS: LEVOTHYROXINE SOD 0.05 MG TABLET PO SCH (05:49)
[2021-03-08 06:10] LABS: Absolute Lymphocytes (CBC) 2.6 K/uL (0.7-4.9); Basophils % 0.4 % (0-1.3); Hematocrit 29.8 % (36.0-45.0); Lymphocytes % 19.3 % (15.3-44.8); MPV 8.9 fL (7.6-11.3); RBC Red Blood Cell Count 3.41 M/uL (3.86-4.86)
[2021-03-08 06:30] LABS: BUN Blood Urea Nitrogen 1 mg/dL (7-18); Bicarbonate 25 mmol/L (21-32); Glucose Level 85 mg/dL (74-106); Potassium 3.7 mmol/L (3.5-5.1); Sodium Level 149 mmol/L (136-145)
[2021-03-08] MEDS: FENTANYL CITR 100 MCG/2 ML IV PRN ×2 (06:46→10:16)
[2021-03-08] MEDS ORDERED: POTASSIUM 25 MEQ EFFERV TAB PO ONE (09:00)
[2021-03-08] MEDS: levETIRAcetam 500 MG/5 ML OSYR PO SCH ×2 (09:00→22:09)
[2021-03-08] MEDS ORDERED: PHENOBARBITAL 20 MG/5 ML PO SCH (09:00)
[2021-03-08] MEDS: ENSURE ENLIVE 237 ML CAN PO SCH ×2 (09:00→21:00)
[2021-03-08] MEDS: VANCOMYCIN 750 MG in NA CHLORIDE 0.9% 250 ML IVPB SCH ×2 (09:20→21:00)
[2021-03-08] MEDS: MEGESTROL 400 MG/10 ML UCUP PO SCH (09:22)
[2021-03-08] MEDS: ZINC SULFATE 220 MG CAP PO SCH (09:22)
[2021-03-08] MEDS: ASCORBIC ACID 500 MG TABLET PO SCH (09:23)
[2021-03-08] MEDS: COLLAGENASE 30 GM OINTMENT TOP SCH (09:23)
--- NOTE | 2021-03-08 10:43 | P.PN ---
Subjective Date of Service: 03/08/21 Primary Care Provider: Dr. White Chief Complaint: stage IV sacral pressure ulcer No fever today. Patient continued to yell intermittently. 1 blood culture bottle growing Gram positive cocci in clusters. Physical Examination - Vital Signs Temperature: 97.8 F Blood Pressure: 102/70 Pulse: 102 Respirations: 16 Pulse Ox (%): 98 - Physical Exam General: In no apparent distress, Cachectic, Other (Awake) HEENT: Mucous membr. moist/pink Neck: Supple Respiratory: Clear to auscultation bilaterally, Normal air movement Cardiovascular: No edema Gastrointestinal: Normal bowel sounds, Soft and benign, Non-distended, No tenderness Musculoskeletal: No swelling, Contractures (Upper and lower extremities.) Integumentary: Other (Stage IV sacral decubitus ulcer) - Studies Microbiology Data (last 24 hrs): 03/06/21 17:30 Wound - Coccyx Gram Stain - Final Assessment And Plan - Current Problems (Diagnosis) (1) Cellulitis Current Visit: Yes Status: Acute (2) Stage IV pressure ulcer Current Visit: Yes Status: Acute Qualifiers: Pressure injury location: sacral region Qualified Code(s): L89.154 - Pressure ulcer of sacral region, stage 4 (3) Cerebral palsy Current Visit: Yes Status: Chronic Qualifiers: Cerebral palsy type: unspecified type Qualified Code(s): G80.9 - Cerebral palsy, unspecified (4) Epilepsy Current Visit: Yes Status: Chronic Qualifiers: Epilepsy type: unspecified Intractability: not intractable Status epilepticus: without status epilepticus Qualified Code(s): G40.909 - Epilepsy, unspecified, not intractable, without status epilepticus (5) Severe protein-calorie malnutrition Current Visit: Yes Status: Acute (6) Chronic anemia Current Visit: Yes Status: Acute - Plan Case discussed with Dr. Franco. Per Dr. Franco, no need for surgical debridement. Chemical debridement with santyl. Continue IV antibiotics. Pain medications as needed. Follow blood cultures. Repeat blood culture. Feeding as tolerated. Posttransfusion hemoglobin up to 9. Nutritional supplementation Continue Risperdal for behavioral abnormality. Continue Anti-seizure medications.
[2021-03-08] MEDS ORDERED: MULTIVITAMIN TAB PO ONE (10:45)
[2021-03-08 11:11] VITALS: BMI 12.7
[2021-03-08] MEDS: PHENOBARBITAL 20 MG/5 ML PO SCH (22:10)
[2021-03-08] MEDS: lisinopriL 20 MG TAB PO SCH (22:12)
[2021-03-08] MEDS: TRAZODONE 50 MG TABLET PO PRN (22:13)
[2021-03-08] MEDS: RISPERIDONE 1 MG TABLET PO SCH (22:13)
[2021-03-08] MEDS: atenoloL 50 MG TAB PO SCH (22:13)
[2021-03-08] MEDS: ATORVASTATIN 20 MG TAB PO SCH (22:13)
[2021-03-08] MEDS: Levofloxacin 750mg IV 750 MG/150 ML BAG IV SCH (22:15)
[2021-03-09] MEDS: LEVOTHYROXINE SOD 0.05 MG TABLET PO SCH (05:52)
[2021-03-09 06:13] LABS: BUN Blood Urea Nitrogen 5 mg/dL (7-18); Bicarbonate 24 mmol/L (21-32); Glucose Level 98 mg/dL (74-106); Potassium 3.5 mmol/L (3.5-5.1); Sodium Level 146 mmol/L (136-145)
[2021-03-09 06:21] LABS: Magnesium 1.3 mg/dL (1.8-2.4)
[2021-03-09] MEDS ORDERED: Magnesium Sulfate 2gm IVPB 2 G/50 ML BAG IV ONE (08:00)
[2021-03-09] MEDS: NA CHLORIDE 0.9% 1,000 ML IV SCH ×2 (08:20→21:37)
[2021-03-09] MEDS: ENSURE ENLIVE 237 ML CAN PO SCH ×2 (08:21→21:38)
[2021-03-09] MEDS: JUVEN PACKET PO SCH ×2 (08:21→21:38)
[2021-03-09] MEDS: MEGESTROL 400 MG/10 ML UCUP PO SCH (08:24)
[2021-03-09] MEDS: ZINC SULFATE 220 MG CAP PO SCH (08:25)
[2021-03-09] MEDS: ASCORBIC ACID 500 MG TABLET PO SCH (08:25)
[2021-03-09] MEDS: COLLAGENASE 30 GM OINTMENT TOP SCH (08:25)
[2021-03-09] MEDS: VANCOMYCIN 750 MG in NA CHLORIDE 0.9% 250 ML IVPB SCH ×2 (08:42→09:00)
[2021-03-09] MEDS ORDERED: POTASSIUM 25 MEQ EFFERV TAB PO ONE (09:00)
[2021-03-09] MEDS: levETIRAcetam 500 MG/5 ML OSYR PO SCH ×2 (09:46→21:35)
[2021-03-09] MEDS: VANCOMYCIN 500 MG in NA CHLORIDE 0.9% 250 ML IVPB SCH ×2 (10:00→21:34)
--- NOTE | 2021-03-09 13:15 | P.PN ---
Subjective Date of Service: 03/09/21 Primary Care Provider: Dr. White Chief Complaint: stage IV sacral pressure ulcer No fever for the past 48 hours Patient continued to yell intermittently. Repeat blood culture shows no growth. Oral intake remain poor. Physical Examination - Vital Signs Temperature: 99 F Blood Pressure: 115/87 Pulse: 92 Respirations: 18 Pulse Ox (%): 100 - Physical Exam General: In no apparent distress, Cachectic, Other (Awake) HEENT: Mucous membr. moist/pink Respiratory: Clear to auscultation bilaterally, Normal air movement Cardiovascular: No edema, Regular rate/rhythm Gastrointestinal: Normal bowel sounds, Soft and benign, Non-distended, No tenderness Musculoskeletal: No swelling Integumentary: No rashes, Other (Stage IV sacral decubitus ulcer) - Studies Microbiology Data (last 24 hrs): 03/06/21 17:30 Wound - Coccyx Gram Stain - Final 03/06/21 17:30 Wound - Coccyx Culture & Sensitivity - Final Staph Aureus Assessment And Plan - Current Problems (Diagnosis) (1) Cellulitis Current Visit: Yes Status: Acute (2) Stage IV pressure ulcer Current Visit: Yes Status: Acute Qualifiers: Pressure injury location: sacral region Qualified Code(s): L89.154 - Pressure ulcer of sacral region, stage 4 (3) Cerebral palsy Current Visit: Yes Status: Chronic Qualifiers: Cerebral palsy type: unspecified type Qualified Code(s): G80.9 - Cerebral palsy, unspecified (4) Epilepsy Current Visit: Yes Status: Chronic Qualifiers: Epilepsy type: unspecified Intractability: not intractable Status epilepticus: without status epilepticus Qualified Code(s): G40.909 - Epilepsy, unspecified, not intractable, without status epilepticus (5) Severe protein-calorie malnutrition Current Visit: Yes Status: Acute (6) Chronic anemia Current Visit: Yes Status: Acute - Plan No need for surgical debridement the surgeon. Chemical debridement with santyl. Continue IV antibiotics. Repeat blood cultures: No growth. Pain medications as needed. Feeding as tolerated. Posttransfusion hemoglobin up to 9 and stable. Nutritional supplementation Continue Risperdal for behavioral abnormality. Continue Anti-seizure medications.
[2021-03-09] MEDS: FENTANYL CITR 100 MCG/2 ML IV PRN (14:11)
[2021-03-09] MEDS: Levofloxacin 750mg IV 750 MG/150 ML BAG IV SCH (21:34)
[2021-03-09] MEDS: PHENOBARBITAL 20 MG/5 ML PO SCH (21:35)
[2021-03-09] MEDS: lisinopriL 20 MG TAB PO SCH (21:36)
[2021-03-09] MEDS: RISPERIDONE 1 MG TABLET PO SCH (21:36)
[2021-03-09] MEDS: ATORVASTATIN 20 MG TAB PO SCH (21:36)
[2021-03-09] MEDS: atenoloL 50 MG TAB PO SCH (21:36)
[2021-03-10] MEDS: TRAZODONE 50 MG TABLET PO PRN (00:46)
[2021-03-10] MEDS: NA CHLORIDE 0.9% 1,000 ML IV SCH ×2 (05:03→15:03)
[2021-03-10] MEDS: LEVOTHYROXINE SOD 0.05 MG TABLET PO SCH (05:28)
[2021-03-10 06:33] LABS: Absolute Lymphocytes (CBC) 1.9 K/uL (0.7-4.9); Basophils % 0.5 % (0-1.3); Hematocrit 29.9 % (36.0-45.0); Lymphocytes % 14.7 % (15.3-44.8); RBC Red Blood Cell Count 3.42 M/uL (3.86-4.86)
[2021-03-10 06:44] LABS: BUN Blood Urea Nitrogen 3 mg/dL (7-18); Bicarbonate 21 mmol/L (21-32); Glucose Level 96 mg/dL (74-106); Potassium 3.4 mmol/L (3.5-5.1); Sodium Level 147 mmol/L (136-145)
[2021-03-10] MEDS ORDERED: POTASSIUM 25 MEQ EFFERV TAB PO ONE (08:00)
--- NOTE | 2021-03-10 09:23 | P.DS ---
Admission Date: 03/06/21 Discharge Date: 03/10/21 Primary Care Provider: Dr. White Disposition: DC HOME/HOME HEALTH CARE Discharge Condition: FAIR Reason for Admission: stage IV sacral pressure ulcer - Problems (1) Cellulitis Current Visit: Yes Status: Acute (2) Stage IV pressure ulcer Current Visit: Yes Status: Acute Qualifiers: Pressure injury location: sacral region Qualified Code(s): L89.154 - Pressure ulcer of sacral region, stage 4 (3) Cerebral palsy Current Visit: Yes Status: Chronic Qualifiers: Cerebral palsy type: unspecified type Qualified Code(s): G80.9 - Cerebral palsy, unspecified (4) Epilepsy Current Visit: Yes Status: Chronic Qualifiers: Epilepsy type: unspecified Intractability: not intractable Status epilepticus: without status epilepticus Qualified Code(s): G40.909 - Epilepsy, unspecified, not intractable, without status epilepticus (5) Severe protein-calorie malnutrition Current Visit: Yes Status: Acute (6) Chronic anemia Current Visit: Yes Status: Acute Brief History of Present Illness: 30 yo F with cerebral palsy, epilepsy here today for a stage IV sacral pressure ulcer. Per mom, she was recently hospitalized in the ICU about a month ago for hypotension and developed the pressure ulcer during that hospitalization. Wound care treatment is done at [place]. Mom reports patient has been experiencing pain and fever and has been receiving OTC pain relievers at home. WBC 16.5. Lactate 4.8. Procal 0.06. CT shows large soft tissue ulceration in the sacral coccygeal region, no drainable abscess in the region, no underlying osteomyelitis findings evident. Interval development of a cystic mass measuring 27mm involving the tail of the pancreas, pancreatic psuedocyst and pancreatic cystic neoplasm would be primary considerations, followup nonemergent MRI of pancreas recommended. Patient admitted for further management. Hospital Course: Patient admitted to the medical floor and started on IV antibiotics-vancomycin and cefepime. Patient seen and evaluated by Dr. Franco who recommended no need for surgical debridement at this time and recommended chemical debridement with santyl. Wound culture grew Staph aureus-MSSA. Patient initial blood culture sets grew Staph epidermidis. Repeat blood culture yielded no growth. The wound looks clean. She had any initial fever episode, and has been afebrile over the past 72 hours. Patient has clinically improved and deemed stable for discharge. She will follow with Dr. Franco in the wound Care Clinic. She is also discharged with home health for nursing and wound care. She is prescribed Levaquin and doxycycline for 1 week to continue treatment for the infected wound. CT abdomen and pelvis done on admission shows 2.7 cm pancreatic cyst. I called and spoke to patient's PCP Dr. White who stated patient was hospitalized 1 month ago and got treated for acute pancreatitis. I suspect pancreatic pseudocyst as a complication of the acute pancreatitis. Dr. White informed to do follow up CT abdomen and pelvis within 1 month. We also discussed patient's nutritional status and the option of enteral versus parenteral nutrition. I had a discussion with the mum regarding PEG tube for nutrition due to poor oral intake. Patient mom is receptive of PEG tube palcement. Referral made for her to see Dr. Bowen to evaluate for PEG tube placement. Vital Signs/Physical Exam: Temp Pulse Resp BP Pulse Ox 98.2 F 87 18 129/74 95 03/10/21 08:00 03/10/21 08:00 03/10/21 08:00 03/10/21 08:00 03/10/21 08:00 General: Other (Awake) HEENT: PERRLA, Mucous membr. moist/pink Neck: Supple, JVD not distended Respiratory: Clear to auscultation bilaterally, Normal air movement Cardiovascular: No edema, Regular rate/rhythm, Normal S1 S2 Gastrointestinal: Normal bowel sounds, Soft and benign, No tenderness Musculoskeletal: Other (Bilateral upper and lower extremity atrophy and contractures.) Integumentary: Other (Large stage IV sacral decubitus ulcer with clean base.) Neurological: Other (Moves all extremities.) Laboratory Data at Discharge: WBC 12.80 K/uL (4.3-10.9) H 03/10/21 05:56 Hgb 9.5 g/dL (12.0-15.0) L 03/10/21 05:56 Hct 29.9 % (36.0-45.0) L 03/10/21 05:56 Plt Count 279 K/uL (152-406) 03/10/21 05:56 PT 13.2 SECONDS (9.5-12.5) H 03/06/21 17:30 INR 1.15 03/06/21 17:30 Sodium 147 mmol/L (136-145) H 03/10/21 05:56 Potassium 3.4 mmol/L (3.5-5.1) L 03/10/21 05:56 BUN 3 mg/dL (7-18) L 03/10/21 05:56 Creatinine 0.32 mg/dL (0.55-1.3) L 03/10/21 05:56 Glucose 96 mg/dL (74-106) 03/10/21 05:56 Phosphorus 3.2 mg/dL (2.5-4.9) 03/07/21 05:12 Magnesium 2.0 mg/dL (1.8-2.4) D 03/09/21 16:05 Total Bilirubin 0.3 mg/dL (0.2-1.0) 03/07/21 05:12 AST 17 U/L (15-37) 03/07/21 05:12 ALT 14 U/L (12-78) 03/07/21 05:12 Alkaline Phosphatase 88 U/L (45-117) 03/07/21 05:12 Home Medications: Clorazepate Dipotassium 7.5 mg PO BID 01/27/19 Risperidone [Risperdal] 2 mg PO BEDTIME 01/27/19 Trazodone [Desyrel*] 50 mg PO BEDTIME 01/27/19 atenoloL [Atenolol] 100 mg PO BEDTIME 01/27/19 levETIRAcetam [Levetiracetam] 7.5 ml PO BID 01/27/19 lisinopriL [Lisinopril] 20 mg PO BEDTIME 01/27/19 Simvastatin 20 mg PO BEDTIME 03/06/21 Levothyroxine [Synthroid*] 50 mcg PO [id number] 03/07/21 Megestrol [Megace*] 800 mg PO DAILY 03/07/21 PHENobarbitaL [Phenobarbital] 20 mg PO DAILY 03/07/21 Collagenase [Santyl Ointment*] 1 appl TOP DAILY #1 tube 03/10/21 Doxycycline Hyclate 100 mg PO BID #14 tablet 03/10/21 Ensure Enlive 237 ml PO BID #60 can 03/10/21 Blair [Blair*] 1 pkt PO BID #60 powd.pack 03/10/21 Zinc Sulfate [Zinc Sulfate*] 220 mg PO DAILY #30 cap 03/10/21 levoFLOXacin [Levaquin] 500 mg PO DAILY #7 tab 03/10/21 New Medications: Doxycycline Hyclate 100 mg PO BID #14 tablet Ensure Enlive 237 ml PO BID #60 can Blair [Blair*] 1 pkt PO BID #60 powd.pack levoFLOXacin [Levaquin] 500 mg PO DAILY #7 tab Collagenase [Santyl Ointment*] 1 appl TOP DAILY #1 tube Zinc Sulfate [Zinc Sulfate*] 220 mg PO DAILY #30 cap Diet: Regular Activity: Fall precautions Followup: [facility] [Primary Care Provider] - Ivan Franco MD [ACTIVE - CAN ADMIT] - 1 Week (At the [facility]) Time spent managing pt's care (in minutes): 41
[2021-03-10 09:29] VITALS: O2SAT 95
[2021-03-10] MEDS: levETIRAcetam 500 MG/5 ML OSYR PO SCH (09:31)
[2021-03-10] MEDS: MEGESTROL 400 MG/10 ML UCUP PO SCH (09:31)
[2021-03-10] MEDS: JUVEN PACKET PO SCH (09:32)
[2021-03-10] MEDS: ENSURE ENLIVE 237 ML CAN PO SCH (09:32)
[2021-03-10] MEDS: COLLAGENASE 30 GM OINTMENT TOP SCH (09:32)
[2021-03-10] MEDS: ZINC SULFATE 220 MG CAP PO SCH (09:33)
[2021-03-10] MEDS: ASCORBIC ACID 500 MG TABLET PO SCH (09:33)
[2021-03-10] MEDS: VANCOMYCIN 500 MG in NA CHLORIDE 0.9% 250 ML IVPB SCH (10:00)
--- NOTE | 2021-03-10 10:39 | P.PN ---
Subjective Date of Service: 03/10/21 Primary Care Provider: Dr. White Chief Complaint: stage IV sacral pressure ulcer Patient seen examined at bedside, blood cultures grew Staph epi in 1 vial and was negative in the other. Likely due continue to contamination. Wound grew Staph aureus, Dc vanc at this time continue Levaquin for 1 week. Patient remains afebrile, leukocytosis still present however is down trending. Review of Systems 10-point ROS is otherwise unremarkable Physical Examination - Vital Signs Temperature: 98.2 F Blood Pressure: 129/74 Pulse: 87 Respirations: 18 Pulse Ox (%): 95 - Studies Laboratory Last Values WBC 16.50 K/uL (4.3-10.9) H 03/06/21 17:30 RBC 3.70 M/uL (3.86-4.86) L 03/06/21 17:30 Hgb 10.5 g/dL (12.0-15.0) L 03/06/21 17:30 Hct 33.2 % (36.0-45.0) L 03/06/21 17:30 MCV 89.6 fL (80-100) 03/06/21 17:30 MCH 28.4 pg (27.0-35.0) 03/06/21 17:30 MCHC 31.7 g/dL (32.0-36.0) L 03/06/21 17:30 RDW 14.0 % (12.1-15.2) 03/06/21 17:30 Plt Count 509 K/uL (152-406) H 03/06/21 17:30 MPV 9.1 fL (7.6-11.3) 03/06/21 17:30 Neutrophils % 67.8 % (41.7-73.7) 03/06/21 17:30 Lymphocytes % 17.3 % (15.3-44.8) 03/06/21 17:30 Monocytes % 14.1 % (3.3-12.3) H 03/06/21 17:30 Eosinophils % 0.5 % (0-4.4) 03/06/21 17:30 Basophils % 0.3 % (0-1.3) 03/06/21 17:30 Absolute Neutrophils 11.2 K/uL (1.8-8.0) H 03/06/21 17:30 Absolute Lymphocytes 2.9 K/uL (0.7-4.9) 03/06/21 17:30 Absolute Monocytes 2.3 K/uL (0.1-1.3) H 03/06/21 17:30 Absolute Eosinophils 0.1 K/uL (0-0.5) 03/06/21 17:30 Absolute Basophils 0.0 K/uL (0-0.5) 03/06/21 17:30 ESR Westergren 76 mm/HR (0-20) H 03/06/21 17:30 PT 13.2 SECONDS (9.5-12.5) H 03/06/21 17:30 INR 1.15 03/06/21 17:30 Sodium 144 mmol/L (136-145) 03/06/21 17:30 Potassium 4.2 mmol/L (3.5-5.1) 03/06/21 17:30 Chloride 109 mmol/L (98-107) H 03/06/21 17:30 Carbon Dioxide 29 mmol/L (21-32) 03/06/21 17:30 BUN 5 mg/dL (7-18) L 03/06/21 17:30 Creatinine 0.64 mg/dL (0.55-1.3) 03/06/21 17:30 Estimated GFR > 90 mL/min (=/>90) 03/06/21 17:30 Glucose 134 mg/dL (74-106) H 03/06/21 17:30 Lactic Acid 4.8 mmol/L (0.4-2.0) H* 03/06/21 17:30 Calcium 9.6 mg/dL (8.5-10.1) 03/06/21 17:30 C-Reactive Protein 20.80 mg/L (<3.00) H 03/06/21 17:30 Procalcitonin 0.06 ng/mL (<0.050) H 03/06/21 17:30 SARS-CoV-2 RNA (RT-PCR) Negative (NEGATIVE) 03/06/21 17:30 Temp Pulse Resp BP Pulse Ox 98.2 F 87 18 129/74 95 03/10/21 10:39 03/10/21 10:39 03/10/21 10:39 03/10/21 10:39 03/10/21 10:39 Active Medications Acetaminophen (Acetaminophen 500 Mg Tab) 500 mg PO Q4HP PRN PRN Reason: Pain scale 2-4 (Mild) Last Admin: 03/07/21 08:29 Dose: 500 mg Documented by: Ascorbic Acid (Ascorbic Acid 500 Mg Tablet) 500 mg PO DAILY [facility] Last Admin: 03/10/21 09:33 Dose: 500 mg Documented by: Atenolol (Atenolol 50 Mg Tab) 100 mg PO BEDTIME [facility] Last Admin: 03/09/21 21:36 Dose: 100 mg Documented by: Atorvastatin Calcium (Atorvastatin 20 Mg Tab) 20 mg PO BEDTIME [facility] Last Admin: 03/09/21 21:36 Dose: 20 mg Documented by: Collagenase (Collagenase 30 Gm Ointment) 1 appl TOP DAILY [facility] Last Admin: 03/10/21 09:32 Dose: 1 appl Documented by: Fentanyl Citrate (Fentanyl Citr 100 Mcg/2 Ml) 25 mcg IV Q4H PRN PRN Reason: Pain scale 8-10 (Severe) Last Admin: 03/09/21 14:11 Dose: 25 mcg Documented by: Home Med (Phenobarbital [Phenobarbital]) 0 mg PO BEDTIME [facility] Last Admin: 03/09/21 21:35 Dose: 8.25 mg Documented by: Sodium Chloride (Ns 1000 Ml Ivbag) 1,000 mls @ 100 mls/hr IV .Q10H [facility] Last Admin: 03/10/21 05:03 Dose: Not Given Documented by: Levofloxacin/Dextrose (Levaquin 750 Mg/150 Ml Ivpb (Premix)) 750 mg in 150 mls @ 100 mls/hr IV Q24H [facility]; Protocol Last Admin: 03/09/21 21:34 Dose: 150 mls Documented by: Sodium Chloride (Sodium Chloride) 250 mls @ 0 mls/hr IV .Q0M [facility] Vancomycin HCl 500 mg/ Sodium (Chloride) 100 mls @ 100 mls/hr IVPB Q12H [facility] L-Arginine/L-Glutamine/HMB (Blair Packet) 1 pkt PO BID [facility] Last Admin: 03/10/21 09:32 Dose: 1 pkt Documented by: Levetiracetam (Levetiracetam 500 Mg/5 Ml [place]) 750 mg PO BID [facility] Stop: 04/05/21 22:24 Last Admin: 03/10/21 09:31 Dose: 750 mg Documented by: Levothyroxine Sodium (Levothyroxine Sod 0.05 Mg Tablet) 0.05 mg PO [id number] [facility] Last Admin: 03/10/21 05:28 Dose: 0.05 mg Documented by: Lisinopril (Lisinopril 20 Mg Tab) 20 mg PO BEDTIME [facility] Last Admin: 03/09/21 21:36 Dose: 20 mg Documented by: Megestrol Acetate (Megestrol 400 Mg/10 Ml Ucup) 800 mg PO DAILY [facility] Last Admin: 03/10/21 09:31 Dose: 800 mg Documented by: Nutritional Formula (Ensure Enlive 237 Ml Can) 237 ml PO BID [facility] Last Admin: 03/10/21 09:32 Dose: 237 ml Documented by: Ondansetron HCl (Ondansetron 4 Mg/2 Ml Vial) 4 mg IV Q6HP PRN PRN Reason: NAUSEA / VOMITING Last Admin: 03/09/21 01:13 Dose: 4 mg Documented by: Risperidone (Risperidone 1 Mg Tablet) 2 mg PO BEDTIME [facility] Last Admin: 03/09/21 21:36 Dose: 2 mg Documented by: Sodium Chloride (Flush Normal Saline 10 Ml) 10 ml IV BID [facility] Last Admin: 03/10/21 09:32 Dose: 10 ml Documented by: Sterile Water (Water For Inj,Sterile 10 Ml) 1.2 ml IM UD PRN PRN Reason: DILUTION OF MED Last Admin: 03/06/21 23:00 Dose: 1.2 ml Documented by: Sterile Water (Water For Inj,Sterile 10 Ml) 1.2 ml IM UD PRN PRN Reason: DILUTION OF MED Trazodone HCl (Trazodone 50 Mg Tablet) 50 mg PO BEDTIME PRN PRN PRN Reason: INSOMNIA Last Admin: 03/10/21 00:46 Dose: 50 mg Documented by: Zinc Sulfate (Zinc Sulfate 220 Mg Cap) 220 mg PO DAILY [facility] Last Admin: 03/10/21 09:33 Dose: 220 mg Documented by: Microbiology Data (last 24 hrs): 03/06/21 17:30 Blood - Blood Aerobic Blood Culture - Final Staph Epidermidis 03/06/21 17:30 Blood - Blood Blood Culture Gram Stain - Final 03/06/21 17:30 Blood - Blood Anaerobic Blood Culture - Final Staph Epidermidis 03/06/21 17:30 Blood - Blood Gram Stain - Final 03/06/21 17:30 Wound - Coccyx Gram Stain - Final 03/06/21 17:30 Wound - Coccyx Culture & Sensitivity - Final Staph Aureus Assessment And Plan - Plan General: In no apparent distress HEENT: Atraumatic, Normocephalic Neck: Supple, 2+ carotid pulse no bruit Respiratory: Clear to auscultation bilaterally, Normal air movement Cardiovascular: No edema, Normal pulses, Regular rate/rhythm Capillary refill: <2 Seconds Gastrointestinal: Normal bowel sounds Integumentary: Pressure ulcer (stage 4 pressure ulcer to left buttock-base of wound shows mixed of fibrin granulation tissue. Wound less than 1 cm in depth. Periwound tissues clean dry and intact with no clinical signs infection. No active drainage or bleeding noted.) Conclusions/Impression: Antibiotics: Vancomycin start: 03/07 stop:03/10 Levaquin start: 03/07 stop: 03/14 Patient is allergic to penicillins and azithromycin. Assessment: 1. Stage IV pressure ulcer to left buttocks 2. Fever and leukocytosis 3. Protein caloric malnutrition 4. Cerebral palsy 5. Epilepsy Plan: 1. Dr. Franco on case-managing wound. Wound care orders: Santyl and foam. Wound culture: Grew Staph aureus sensitive to Levaquin. Patient also started on supplemental vitamins: Vitamin C, zinc, and multi-vitamin. Air mattress ordered. No surgical intervention needed at this time. 2. Blood cultures grew Staph epi in 1 vial, no growth any other vile--likely contamination. Vancomycin discontinued on 03/10. Continue Levaquin until 03/14. Leukocytosis down trending. Inflammatory markers: Procal unremarkable, CRP elevated at 20.6. Repeat CRP ordered. 3. Patient has low albumin-supplemental ensure drinks ordered with each meal. -medical management per primary team -continue monitor CBC and BMP -Continue monitor for signs infection Plan of care discussed with Dr. Mauro. Thank you for consultation.
--- NOTE | 2021-03-10 13:13 | PN ---
Date of Progress Note: 03/10/2021 Subjective: Patient is more awake and resting comfortably. Not in distress. Objective: VITALS: Stable. T-max 99.2. WOUNDS: Examination of the wound reveals no significant change. There is fibrin present. There is no erythema, warmth, edema. Laboratory Data: Shows white count of 12.8. There is no left shift. Assessment: Sacral decubitus. Recommendation: Cultures reviewed. Blood culture may be contaminated. Wound cultures growing out S taphylococcus aureus, sensitive to Cipro, Bactrim, and doxy. Patient can be discharged home on any o f those antibiotics and we will [facility] her [facility]. Wound care per orders. P kip of care discussed with Dr. Fabian. /SUZETTE Voice ID: [id number] Report ID: [id number]
[2021-03-10 13:16] VITALS: BP 128/72; TEMP 98.6
[2021-03-10] MEDS ORDERED: POTASSIUM CL 40 MEQ in NA CHLORIDE 0.9% 500 ML IV SCH (16:00)
[2021-03-10] MEDS ORDERED: VANCOMYCIN 500 MG in NA CHLORIDE 0.9% 100 ML IVPB SCH (22:00)
== END 2021-03-10 17:39 | disposition home health service (06) | DRG 871 ==
LOC: ER 14:47 → ERHOLD 20:30 → 2ND 03-07 08:39
PROVIDERS: ADMIT Internal Medicine; ATTEND Internal Medicine
PROC: 30233N1 Transfusion of Nonautologous Red Blood Cells into Peripheral Vein, Percutaneous Approach (ICD-10-PCS; principal; 2021-03-07)
DX: A41.01 Sepsis due to Methicillin susceptible Staphylococcus aureus (principal); L89.154 Pressure ulcer of sacral region, stage 4; E43 Unspecified severe protein-calorie malnutrition; L03.818 Cellulitis of other sites; Z68.1 Body mass index [BMI] 19.9 or less, adult; K86.2 Cyst of pancreas; G80.9 Cerebral palsy, unspecified; G40.909 Epilepsy, unspecified, not intractable, without status epilepticus; K86.9 Disease of pancreas, unspecified; D64.9 Anemia, unspecified; D72.829 Elevated white blood cell count, unspecified; I10 Essential (primary) hypertension; Z88.1 Allergy status to other antibiotic agents; Z88.0 Allergy status to penicillin; Z79.899 Other long term (current) drug therapy; Z79.890 Hormone replacement therapy; Z20.822 Contact with and (suspected) exposure to COVID-19
CPT/HCPCS: 36415; 36430; 74177; 80048; 80053; 80202; 82274; 83605; 83735; 84100; 84132; 84145; 85014; 85018; 85025; 85610; 85652; 86140; 86850; 86900; 86901; 87040; 87070; 87077; 87186; 87205; 94760; 96365; 96366; 96368; 96372; 96375; 99285; J1630; J2270; J2405; J3010; J3370; J3475; J3480; J3486; J3590; J7030; J7040; J7050; P9016; Q9967; U0003